=== PATIENT | male | born 1955 | race Caucasian/White ===

== ENCOUNTER 2023-12-04 09:58 | Outpatient (CLI) | payer MEDICARE, SELFPAY ==
--- NOTE | 2023-12-04 11:00 | NEURO_ITS ---
Impression: # Complains of numbness of hands. Not diabetic. # Bilateral Carpal Tunnel Syndrome, left more than right. # No ulnar neuropathy. # Normal needle/EMG exam. # Patient noted to have dystonic posturing of both hands throughout testing. Nerve Conduction Studies Anti Sensory Summary Table Stim Site NR Peak (ms) P-T Amp (?V) Site1 Site2 Delta-P (ms) Dist (cm) Stepan (m/s) Left Median Anti Sensory (2-3nd Digit) Wrist 6.3 5.5 Wrist 2-3nd Digit 6.3 14.0 22 Wrist 6.3 22.1 Wrist 2-3nd Digit 6.3 14.0 22 Right Median Anti Sensory (2-3nd Digit) Wrist 5.8 24.4 Wrist 2-3nd Digit 5.8 14.0 24 Wrist 6.1 37.0 Wrist 2-3nd Digit 5.8 14.0 24 Left Radial Anti Sensory (Base 1st Digit) Wrist 1.8 25.5 Wrist Base 1st Digit 1.8 0.0 Right Radial Anti Sensory (Base 1st Digit) Wrist 2.4 14.5 Wrist Base 1st Digit 2.4 0.0 Left Ulnar Anti Sensory (5th Digit) Wrist 2.5 28.9 Wrist 5th Digit 2.5 14.0 56 Right Ulnar Anti Sensory (5th Digit) Wrist 2.7 19.9 Wrist 5th Digit 2.7 14.0 52 Motor Summary Table Stim Site NR Onset (ms) O-P Amp (mV) Site1 Site2 Delta-0 (ms) Dist (cm) Stepan (m/s) Left Median Motor (Abd Poll Brev) Wrist 6.3 0.7 Elbow Wrist 3.9 29.0 74 Elbow 10.2 1.4 Right Median Motor (Abd Poll Brev) Wrist 3.8 1.6 Elbow Wrist 5.7 30.0 53 Elbow 9.5 0.9 Left Ulnar Motor (Abd Dig Minimi) Wrist 2.3 4.2 A Elbow Wrist 4.9 29.0 59 A Elbow 7.2 3.6 Right Ulnar Motor (Abd Dig Minimi) Wrist 2.7 6.1 A Elbow Wrist 5.3 30.0 57 A Elbow 8.0 4.8 F Wave Studies NR F-Lat (ms) L-R F-Lat (ms) Left Median (Mrkrs) (Abd Poll Brev) 27.60 0.41 Right Median (Mrkrs) (Abd Poll Brev) 28.01 0.41 Left Ulnar (Mrkrs) (Abd Dig Min) 28.41 0.34 Right Ulnar (Mrkrs) (Abd Dig Min) 28.75 0.34 EMG Side Muscle Nerve Root Ins Act Fibs Amp Dur Recrt Comment Right 1stDorInt Ulnar C8-T1 Nml Nml Nml Nml Nml Right Ext Indicis Radial (Post Int) C7-8 Nml Nml Nml Nml Nml Right Ext Digitorum Radial (Post Int) C7-8 Nml Nml Nml Nml Nml Right BrachioRad Radial C5-6 Nml Nml Nml Nml Nml Right PronatorTeres Median C6-7 Nml Nml Nml Nml Nml Right Abd Poll Brev Median C8-T1 Nml Nml Nml Nml Nml Right ABD Dig Min Ulnar C8-T1 Nml Nml Nml Nml Nml Left 1stDorInt Ulnar C8-T1 Nml Nml Nml Nml Nml Left Ext Indicis Radial (Post Int) C7-8 Nml Nml Nml Nml Nml Left Ext Digitorum Radial (Post Int) C7-8 Nml Nml Nml Nml Nml Left BrachioRad Radial C5-6 Nml Nml Nml Nml Nml Left PronatorTeres Median C6-7 Nml Nml Nml Nml Nml Left Abd Poll Brev Median C8-T1 Nml Nml Nml >12ms +2 Left ABD Dig Min Ulnar C8-T1 Nml Nml Nml Nml Nml MTDD
== END 2023-12-04 09:59 | disposition home or self-care (01) ==
PROVIDERS: PCP Internal Medicine; Visit Provider Internal Medicine
DX: R20.0 Anesthesia of skin (principal); G56.03 Carpal tunnel syndrome, bilateral upper limbs
CPT/HCPCS: 95886; 95911

== ENCOUNTER 2024-12-13 18:03 | Emergency (ER) | payer MEDICARE, SELFPAY ==
--- NOTE | ~2024-12-13 | CT_ITS ---
EXAMINATION: CTA chest abdomen pelvis DATE: 12/13/2024 19:22 INDICATION: chest and epigastric pain into back . TECHNIQUE: Computed tomography angiography of the chest, abdomen, and pelvis was performed with 100 m L Omnipaque-350 intravenous contrast, in the arterial phase. Automated exposure control and iterative reconstruction technique were employed. The dose-length product was 291.91 mGy-cm. COMPARISON: None FINDINGS: CHEST: Thoracic aorta: No significant dilation. No dissection. Moderate atherosclerotic calcification. Lung parenchyma and airways: Mild emphysematous change. Patent airways. Mild bibasilar scar/atelectas is. Thoracic inlet, axillae and chest wall: 1.5 cm right thyroid nodule. No axillary lymphadenopathy. Mediastinum: No mass or lymphadenopathy. Heart and pericardium: Normal heart size. No pericardial effusion. Coronary artery calcifications: Mild. Pleura: No effusion or mass. Thoracic bones: No acute osseous finding in the chest. Partially visualized, uncomplicated appearing anterior and posterior cervical fusion hardware. ABDOMEN/PELVIS: Liver: 5 mm hyperenhancing focus in the inferior right liver lobe. Biliary/Gallbladder: Gallbladder is normal. No bile duct dilation. Pancreas: No mass or duct dilation. Spleen: Normal. Adrenals:No mass. Kidneys: No suspicious mass, obstructing stone, or hydronephrosis. Bilateral cortical thinning and sc arring. Bilateral nonobstructing renal calculi. GI tract: No small or large bowel dilation. The appendix is not confidently visualized. Diverticulosi s without diverticulitis. Mesentery/Peritoneum: No ascites, mass, or free air. Mesenteric edema. Retroperitoneum: No mass Heavy atherosclerotic calcification of the abdominal aorta and its branches. Infrarenal abdominal aortic aneurysm, measuring up to 3.1 cm. No severe aortic branch vessel stenosi s. The SMA and CYRIL are patent. Pelvis: Partially distended urinary bladder with moderate wall thickening and inflammatory change. Pr ostatomegaly. Soft Tissues: Moderate left inguinal hernia containing unobstructed large bowel. Mild body wall edema Abdominopelvic bones: No acute osseous finding in the abdomen/pelvis. Lumbar scoliosis. Altered leve l grade 1 listheses. Multilevel severe degenerative disc disease. Severe central canal stenosis at L3 -4. Uncomplicated appearing spinous process fusion hardware at L4-5. IMPRESSION: Mild emphysema. 1.5 cm right thyroid nodule, recommend nonemergent, outpatient thyroid ultrasound for further evaluat ion. 5 mm hyperenhancing focus in the inferior right liver lobe, recommend nonemergent but timely MRI of t he liver without and with contrast for further characterization. Mild mesenteric edema, a nonspecific finding. 3.1 cm fusiform abdominal aortic aneurysm. Cystitis. Left inguinal hernia containing unobstructed large bowel. Mild body wall edema. Reviewed, dictated and finalized at location K. IMPRESSION: Mild emphysema. 1.5 cm right thyroid nodule, recommend nonemergent, outpatient thyroid ultrasou nd for further evaluation. 5 mm hyperenhancing focus in the inferior right liver lobe, recommend nonemerge nt but timely MRI of the liver without and with contrast for further characteri zation. Mild mesenteric edema, a nonspecific finding. 3.1 cm fusiform abdominal aortic aneurysm. Cystitis. Left inguinal hernia containing unobstructed large bowel. Mild body wall edema.
--- OUTSIDE RECORDS SUMMARY | 2024-12-13 18:06 | XMS_ITS | Clinical Summary ---
Author Organization [facility] Address [address] [place] [address] Care Team Providers Care Collection Coordinator Name Role Phone Cristian Bhardwaj MD Primary Care Provider [phone] Source Comments [facility],non-owned Affiliates and Associated Physician Practices is amultiple site organization consisting of ambulatory clinics and hospital sitesin [place], [place], [place] and [place]. This disclosure is being madepursuant to the Care Everywhere program and may not contain all information available regarding this patient. Last updated 18.[facility] Allergies Active Allergy Reactions Criticality Noted Date Comments Codeine 06/13/2010 Upset stomach Medications * Be aware that medications may not be up to date on this document. Alwaysverify current medications with the patient. citalopram (CELEXA) 40 MG tablet Take 40 mg by mouth daily. Active lorazepam (ATIVAN) 0.5 MG tablet Take 0.5 mg by mouth every 8 hours as needed. Active pravastatin (PRAVACHOL) 40 MG tablet Take 40 mg by mouth 2 times daily. Active Glucosamine-Anatoly droitin (GLUCOSAMINE CHONDRO COMPLEX) 500-400 MG tablet Take 1 Tab by mouth daily. Active oxycodone-acetam inophen (PERCOCET) 7.5-500 MG tablet Take 1 Tab by mouth every 4 hours as needed. Active hydrocodone-acet aminophen (NORCO) 5-325 MG tablet Take 1-2 Tabs by mouth every 4 hours as needed for Pain. 40 Tab 1 10/18/2011 Active piroxicam (FELDENE) 20 MG capsule Take one tab daily with dinner 30 Cap 5 11/24/2012 Active Active Problems Problem Noted Date Diagnosed Date Degeneration of lumbar or lumbosacral interverte bral disc 12/02/2012 Follow-up examination, following other surgery 0 09/19/2011 Displacement of lumbar inter vertebral disc without myelopathy 06/18/2011 Status post lumbar surgery 08/14/2010 Spinal stenosis, lumbar brianna on, with neurogenic claudication 06/26/2010 Social History Tobacco Use Types Packs/Day Years Used Date Smoking Tobacco: Every Day Cigarettes 1 40 Tobacco Cessation:Ready to Q uit: No; Counseling Given: Yes Alcohol Use Standard Drinks/Week Comments No 0 (1 standard drink = 0.6 oz pur e alcohol) Sex and Gender Information Value Date Recorded Sex Assigned at Not on file Legal Sex Male 9:24 AM [employer] Gender Identity Not on file Sexual Orientation Not on file Last Filed Vital Signs Vital Sign Reading Time Taken Comments Blood Pressure 130/70 11/24/2012 11:31 AM CDT Pulse 64 11/24/2012 11:31 AM CDT Temperature 36.7 C (98 F) 08/31/2011 8:00 AM [employer] Respiratory Rate 26 11/24/2012 11:31 AM CDT Oxygen Saturation 93% 08/31/2011 8:00 AM [employer] Inhaled Oxygen Concentration - - Weight 79.4 kg (175 lb) 11/24/2012 11:31 AM CDT Height 172.7 cm (5' 8 ) 11/24/2012 11:31 AM CDT Body Mass Index 26.61 11/24/2012 11:31 AM CDT Plan of Treatment Health Maintenance Due Date Last Done Comments COLOGUARD (AGES 45-75) - COL ON CA SCREENING 1954 COLON MONITORING 1954 COLONOSCOPY - COLON CA SCREENING 1954 CT COLONOGRAPHY - COLON CA SCREENING 1954 Colorectal Cancer Screening 1954 FIT - COLON CA SCREENING 1954 FLEX SIG - COLON CA SCREENING 1954 HEPATITIS C SCREENING 02/18/1972 DTAP/TDAP/TD VACCINES (1 - Tdap) 1973 PNEUMOCOCCAL VACCINE 50+ (1 of 2 - PCV) 1973 ZOSTER VACCINE (1 of 2) 02/23/2004 AAA SCREENING 2019 COVID-19 VACCINE ( - 2023-2 5 season) 2024 DEPRESSION SCREENING 08/12/2024 INFLUENZA VACCINE (Season Ended) 2025 Respiratory Syncytial Virus (RSV) Vaccine Pt: or over 60 yrs (1 - 1-dose 75+ series) 2029 HEPATITIS B VACCINE Aged Out No longe r eligible based on patient's age to complete this topic HIB VACCINE Aged Out No longer eligi ble based on patient's age to complete this topic HPV VACCINE Aged Out No longer eligi ble based on patient's age to complete this topic MENINGOCOCCAL (Group B) VACC INE SHARED DECISION-MAKING Aged Out No longer eligibl e based on patient's age to complete this topic MENINGOCOCCAL GROUPS A/C/Y/W VACCINE Aged Out No longer eligible b ased on patient's age to complete this topic Insurance [facility] [employer] Advance Directives * FULL RESUSCITATION (Latest Code Status on File) Date Activated Date Inactivated Comments 08/30/2011 3:25 PM 08/31/2011 8:09 PM * Full Code Date Activated Date Inactivated Comments 06/13/2010 5:31 PM 06/14/2010 10:37 PM Care Teams Collection Coordinator Relationship Specialty Start Date End Date Cristian Bhardwaj MD [address] [place] [phone] PCP - General Internal Medicine 05/22/10
--- OUTSIDE RECORDS SUMMARY | 2024-12-13 18:06 | XMS_ITS | CONTINUITY OF CARE DOCUMENT ---
Author Name sylindranevin Address Unknown Organization [facility] Address [address] [place] [address] [address] [place] [address] Phone [phone] Care Team Providers Care Acute Care Clinical Nurse Specialist Name Role Phone Bubba QUIROS, Carol Unavailable YANELIS LUTZ MD Unavailable INSURANCE PROVIDERS Payer name Policy type / Coverage type Michelle red republican ID [facility] [id number]
--- OUTSIDE RECORDS SUMMARY | 2024-12-13 18:06 | XMS_ITS | Data Portability ---
Author Organization [place] [facility] [employer], Main Office Address [address] [place] [address] Assessment No assessment recorded. Plan of Treatment Reminders Order Date Submit Date Provider Last Modified By Organization Details Last Modified Time Details Appointments None recorded. Lab lipid panel, serum 025 025 [email or web address] [facility], [address] [place], [address], 5 09:51:17 CMP, serum or plasma 025 025 [email or web address] [facility], [address] [place], [address], 5 09:51:18 TSH, serum or plasma 025 025 [email or web address] [facility], [address] [place], [address], 5 09:51:18 T4, free, serum 025 025 [facility], [address] [place], [address], 5 09:51:18 CBC w/ auto diff 025 025 [id number] [facility], [address] [place], [address], 5 09:51:18 PSA, serum or plasma 025 025 [email or web address] [facility], [address] [place], [address], 5 09:51:18 drug screen, urine 025 025 [facility], [address] [place], [address], 5 09:51:18 lipid panel, serum 024 024 [facility], [address] [place], [address], 4 18:05:40 CMP, serum or plasma 024 [facility], [address] [place], [address], 4 18:05:46 TSH, serum or plasma 024 [facility], [address] [place], [address], 4 18:36:55 T4, free, serum 024 [facility], [address] [place], [address], 4 18:20:51 CBC w/ auto diff 024 [facility], [address] [place], [address], 4 17:44:17 vitamin B12, serum 024 024 [facility], [address] [place], [address], 4 18:27:55 CBC w/ auto diff 023 023 [facility], [address] [place], [address], 3 14:13:19 lipid panel, serum 023 023 [facility], [address] [place], [address], 3 14:35:48 CMP, serum or plasma 023 023 [facility], [address] [place], [address], 3 14:35:54 TSH, serum or plasma 023 023 [facility], [address] [place], [address], 3 15:06:42 T4, free, serum 023 023 [facility], [address] [place], [address], 3 15:04:41 PSA, serum or plasma [id number] [place] [address], [address] [place], [address], 4 13:11:54 drug screen, urine 023 023 [facility] [employer] [facility], [address] , [place], [address], 3 15:06:17 lipid panel, serum [id number] [place] [address], [address] [place], [address], 3 16:28:05 CMP, serum or plasma [id number] [place] [address], [address] [place], [address], 3 16:28:05 CBC w/ auto diff [id number] [place] [address], [address] [place], [address], 3 16:28:05 PSA, serum or plasma 023 023 [id number] [facility], [address], [place], [address], 3 16:28:05 drug screen, urine 023 023 [email or web address] [facility], [facility] [address], [place], [address], 3 16:28:05 Referral None recorded. Procedures None recorded. Surgeries None recorded. Imaging None recorded. Medication Orders None recorded. Patient TargetsNo targets recorded. Patient Instructions Encounter Date Encounter Id Patient Instructions Last Modified By Organization Details Last Modified Time 02/11/2023 [id number] dementia rating scale-2* [email or web address] Not available 02/11/2023 11:32:54 alcohol misuse* [email or web address] Not available 02/11/2023 11:32:54 depression screening* [email or web address] Not available 02/11/2023 11:32:54 multi-dimensiona l health assessment questionnaire* [email or web address] Not available 02/11/2023 11:32:54 Personalized [facility] Plan and Screening Recommendations Advance Directives - Do you have one? No Advance Directives - Do we have your advance directive on file in your health record? Primary Prevention/Interven tion (prevents or decreases the chance of common diseases from occurring) Smoking Risk: Smoker Refer to attached smoking cessation handouts Refer to attached handouts and prescription will be sent to pharmacy Continue to consider stopping smoking and call if we can assist you Alcohol Misuse Screening: Negative Weight: Appropriate Physical activity: Need more exercise/physical activity Nutrition: Good Average Fall Risk (screened today): Low Vaccines Pneumococcal: Ordered Recommended today Influenza: Your next one in the fall of this year Chronic Disease Risks Stroke: Low Risk Intermediate Risk I have no recommendations Act sudha diagnosis, Continue current treatment plan Heart Attack: Low risk Intermediate Risk I have no recommendations Act sudha diagnosis, Continue current treatment plan Clogging of the Arteries: Low risk Intermediate Risk I have no recommendations Act sudha diagnosis, Continue current treatment plan Diabetes: Low Risk Intermediate Risk Active diagnosis, Continue current treatment plan Secondary Prevention/Interven tion (detects treatable diseases before they may cause symptoms, disability, or ) Prostate Cancer Screening: Colon Cancer Screening: Colonoscopy In: Ordered Recomme nded Date Screening Last Performed: Eye Disease Screening: Ordered Recommended today Dementia Risk: Low I have no recommendations Depression Screening: Negative Active diagnosis, Continue current treatment plan [email or web address] Not available 02/11/2023 11:13:01 Medicare wellnes s evaluation risk assessment stable. Was given a Pneumovax 23 shot to close out his pneumococcal immunization. Also needs a low-dose CT scan of the chest, colonoscopy as well as blood work. Will check a CBC, CMP, lipid urine drug screen and PSA. Follow-up in six months low-dose CT scan of the chest Follow-up colonoscopy [email or web address] Not available 02/11/2023 11:34:11 08/08/2023 [id number] Follow-up lumbar radiculopathy- depression- hyperlipidemia- chronic pain syndrome. All clinically stable. Will check blood work consisting of CBC, CMP, lipid, thyroid and, PSA and urine drug screen. Continue on current Rx follow-up in six months. FDA recommendations of a influenza, RSV, COVID, pneumococcal immunizations strongly advised. Portions of the record may have been created with voice recognition software. Occasional wrong-word or [id number] substitutions may have occurred due to the inherent limitations of voice recognition software. Read the chart carefully and recognize, using context, where substitutions have occurred. [email or web address] Not available 08/08/2023 10:54:23 10/10/2023 [id number] Bilateral hand numbness. Will obtain a MRI of the cervical spine as well as a nerve conduction study of both hands. Pending those results. Will check a vitamin B12 level. Portions of the record may have been created with voice recognition software. Occasional wrong-word or ecjlp-n-[id number] substitutions may have occurred due to the inherent limitations of voice recognition software. Read the chart carefully and recognize, using context, where substitutions have occurred. MRI of the cervical spine for bilateral arm numbness without contrast Nerve conduction study of both upper all extremities for bilateral hand numbness Keep Appt: [facility] [place] 02 06 2024 09:40 AM [place] [email or web address] Not available 10/10/2023 12:30:55 06/10/2024 [id number] Follow-up hyperlipidemia, spinal stenosis lumbar area, chronic pain syndrome, left and right inguinal hernia. Plan is obtain blood work consisting of CBC, CMP, lipid and thyroid. Set up with General surgery for evaluation the hernias. Check a urine drug screen as well. Continue on current Rx and follow-up in for months Additional Orders - Directives - Recommendations 1. General surgery consult for bilateral inguinal hernias Follow Up: 4 Months Approximate Date: 10/08/2024 Portions of the record may have been created with voice recognition software. Occasional wrong-word or [id number] substitutions may have occurred due to the inherent limitations of voice recognition software. Read the chart carefully and recognize, using context, where substitutions have occurred. [email or web address] Not available 06/10/2024 15:43:11 10/14/2024 [id number] Follow-up for hyperlipidemia, GERD, depression, chronic pain syndrome all clinically stable. Overall has been doing well otherwise. Will continue on current medications check blood work consisting of CBC, CMP, lipid, thyroid and PSA. Continue on current Rx follow-up in four months Additional Orders - Directives - Recommendations 1. Needs a follow-up colonoscopy Follow Up: 4 Months Approximate Date: 02/11/2025 Portions of record are template driven. When necessary additional context will be provided. Additionally some portions have been created with voice recognition software. Occasional wrong-word or [id number] substitutions may have occurred due to the inherent limitations of voice recognition software. Read the chart carefully and recognize, using context, where substitutions may have occurred. Created: Cristian Bhardwaj M.D. 10.14.2024 02:51 PM [email or web address] Not available 10/14/2024 15:51:51 Reason for Referral None Reported. Results Created Date Observation Date Name Description Value Unit Range Abnormal Flag Note LastModifiedBy Organization Detail LastModifiedTime 08/08/2008/08/2023 CBC/C OMPLE TE BLD COUNT W/DIF F white blood cells 10.2 x10'3 /uL 4.2-10 .8 Not Available [facility] (Lab) [address] [place], [address], 08/08/2023 14:13:19 08/08/20 23 08/08/2023 CBC/C OMPLE TE BLD COUNT W/DIF F red blood cells 3.84 x10'6 /uL 4.10-5 .80 low Not Available [facility] (Lab) [address] [place], [address], 08/08/2023 14:13:19 08/08/20 23 08/08/2023 CBC/C OMPLE TE BLD COUNT W/DIF F hemoglobin 12.4 g/dL 13.2-1 7.0 low Not Available [facility] (Lab) [address] [place], [address], 08/08/2023 14:13:19 08/08/20 23 08/08/2023 CBC/C OMPLE TE BLD COUNT W/DIF F hematocrit 39.3 % 39.3-5 0.0 Not Available [facility] (Lab) [address] [place], [address], 08/08/2023 14:13:19 08/08/20 23 08/08/2023 CBC/C OMPLE TE BLD COUNT W/DIF F mean red cell volume 102.3 fL 80.0-9 7.0 high Not Available [facility] (Lab) [address] [place], [address], 08/08/2023 14:13:19 08/08/20 23 08/08/2023 CBC/C OMPLE TE BLD COUNT W/DIF F mean red cell hemoglobin 32.3 pg 27.0-3 3.0 Not Available [facility] (Lab) [address] [place], [address], 08/08/2023 14:13:19 08/08/20 23 08/08/2023 CBC/C OMPLE TE BLD COUNT W/DIF F mean RBC HGB concentratio n 31.6 g/dL 31.0-3 6.0 Not Available [facility] (Lab) [address] [place], [address], 08/08/2023 14:13:19 08/08/20 23 08/08/2023 CBC/C OMPLE TE BLD COUNT W/DIF F red cell distribution width 13.8 % 11.8-1 5.5 Not Available [facility] (Lab) [address] [place], [address], 08/08/2023 14:13:19 08/08/20 23 08/08/2023 CBC/C OMPLE TE BLD COUNT W/DIF F platelets 235 x10'3 /uL 150-40 0 Not Available [facility] (Lab) [address] [place], [address], 08/08/2023 14:13:19 08/08/20 23 08/08/2023 CBC/C OMPLE TE BLD COUNT W/DIF F mean platelet volume 10.4 fL 9.0-12 .4 Not Available [facility] (Lab) [address] [place], [address], 08/08/2023 14:13:19 08/08/20 23 08/08/2023 CBC/C OMPLE TE BLD COUNT W/DIF F neutrophils 72.7 % 39.0-7 2.0 high Not Available [facility] (Lab) [address] [place], [address], 08/08/2023 14:13:19 08/08/20 23 08/08/2023 CBC/C OMPLE TE BLD COUNT W/DIF F lymphocytes 17.2 % 16.0-4 7.0 Not Available [facility] (Lab) [address] [place], [address], 08/08/2023 14:13:19 08/08/20 23 08/08/2023 CBC/C OMPLE TE BLD COUNT W/DIF F monocytes 7.1 % 5.0-12 .0 Not Available [facility] (Lab) [address] [place], [address], 08/08/2023 14:13:19 08/08/20 23 08/08/2023 CBC/C OMPLE TE BLD COUNT W/DIF F eosinophils 2.1 % 1.0-7. 0 Not Available [facility] (Lab) [address] [place], [address], 08/08/2023 14:13:19 08/08/20 23 08/08/2023 CBC/C OMPLE TE BLD COUNT W/DIF F basophils 0.6 % 0.0-2. 0 Not Available [facility] (Lab) [address] [place], [address], 08/08/2023 14:13:19 08/08/20 23 08/08/2023 CBC/C OMPLE TE BLD COUNT W/DIF F immature granulocytes 0.3 % 0.00-0 .50 Not Available [facility] (Lab) [address] [place], [address], 08/08/2023 14:13:19 08/08/20 23 08/08/2023 CBC/C OMPLE TE BLD COUNT W/DIF F neutrophils, absolute count 7.42 x10'3 /uL 1.5-8. 0 Not Available [facility] (Lab) [address] [place], [address], 08/08/2023 14:13:19 08/08/20 23 08/08/2023 CBC/C OMPLE TE BLD COUNT W/DIF F lymphocytes, absolute count 1.75 x10'3 /uL 1.07-3 .43 Not Available [facility] (Lab) [address] [place], [address], 08/08/2023 14:13:19 08/08/20 23 08/08/2023 CBC/C OMPLE TE BLD COUNT W/DIF F monocytes, absolute count 0.72 x10'3 /uL 0.29-0 .99 Not Available [facility] (Lab) [address] [place], [address], 08/08/2023 14:13:19 08/08/20 23 08/08/2023 CBC/C OMPLE TE BLD COUNT W/DIF F eosinophils, absolute count 0.21 x10'3 /uL 0.02-0 .53 Not Available [facility] (Lab) [address] [place], [address], 08/08/2023 14:13:19 08/08/20 23 08/08/2023 CBC/C OMPLE TE BLD COUNT W/DIF F basophils, absolute count 0.06 x10'3 /uL 0.01-0 .08 Not Available [facility] (Lab) [address] [place], [address], 08/08/2023 14:13:19 08/08/20 23 08/08/2023 CBC/C OMPLE TE BLD COUNT W/DIF F immature granulocytes ,absolute 0.03 x10'3 /uL 0.00-0 .05 Not Available [facility] (Lab) [address] [place], [address], 08/08/2023 14:13:19 08/08/20 23 08/08/2023 CBC/C OMPLE TE BLD COUNT W/DIF F nucleated red blood cells 0.0 % -0 Not Available [facility] (Lab) [address] [place], [address], 08/08/2023 14:13:19 08/08/20 23 08/08/2023 CBC/C OMPLE TE BLD COUNT W/DIF F NRBC# 0.00 x10'3 /uL Not Available [facility] (Lab) [address] [place], [address], 08/08/2023 14:13:19 08/08/20 23 08/08/2023 LIPID PANEL cholesterol 119 mg/dL 140-19 9 low NIH JC NSUS RECOM MENDA TION FOR ABHISHEK STERO L: ADULT CHILD LOW RISK: <200 <170 BORDE RLINE : <200- 239 ----- HIGH RISK: >240 >200 Not Available [facility] (Lab) [address] [place], [address], 08/08/2023 14:35:48 08/08/20 23 08/08/2023 LIPID PANEL triglyceride s 45 mg/dL 0-150 NIH JC NSUS REPOR T RECOM MENDA TION FOR TRIGL YCERI HERBER: ADULT CHILD LOW RISK: <150 ----- BODER LINE: 150-1 99 ----- HIGH RISK: >200 ----- Not Available [facility] (Lab) [address] [place], [address], 08/08/2023 14:35:48 08/08/20 23 08/08/2023 LIPID PANEL HDL cholesterol 47 mg/dL 40- Not Available [facility] (Lab) [address] [place], [address], 08/08/2023 14:35:48 08/08/20 23 08/08/2023 LIPID PANEL LDL cholesterol, calculated 63 mg/dL 0-130 NIH JC NSUS REPOR T RECOM MENDA TIONS FOR LDL: ADULT CHILD LOW RISK <130 <110 (OPTI MAL LDL) <100 ----- BORDE RLINE : 130-1 59 ----- HIGH RISK: >160 >130 A TRIGL YCERI DE RESUL T >400 INVAL IDATE S THE CALCU LATIO N FOR LDL FRACT IONAT ION - THE LDL RESUL T WILL NOT BE REPOR MICH. Not Available [facility] (Lab) [address] [place], [address], 08/08/2023 14:35:48 08/08/20 23 08/08/2023 COMPR EHENS SUDHA METAB OLIC PANEL sodium 139 mmol/ L 137-14 5 Not Available [facility] (Lab) [address] [place], [address], 08/08/2023 14:35:54 08/08/20 23 08/08/2023 COMPR EHENS SUDHA METAB OLIC PANEL potassium 4.3 mmol/ L 3.5-5. 1 Not Available [facility] (Lab) [address] [place], [address], 08/08/2023 14:35:54 08/08/20 23 08/08/2023 COMPR EHENS SUDHA METAB OLIC PANEL chloride 103 mmol/ L 98-107 Not Available [facility] (Lab) [address] [place], [address], 08/08/2023 14:35:54 08/08/20 23 08/08/2023 COMPR EHENS SUDHA METAB OLIC PANEL carbon dioxide 29 mmol/ L 22-30 Not Available [facility] (Lab) [address] [place], [address], 08/08/2023 14:35:54 08/08/20 23 08/08/2023 COMPR EHENS SUDHA METAB OLIC PANEL anion gap 11.3 mmol/ L 14-22 low Not Available [facility] (Lab) [address] [place], [address], 08/08/2023 14:35:54 08/08/20 23 08/08/2023 COMPR EHENS SUDHA METAB OLIC PANEL glucose 86 mg/dL 70-99 Not Available [facility] (Lab) [address] [place], [address], 08/08/2023 14:35:54 08/08/20 23 08/08/2023 COMPR EHENS SUDHA METAB OLIC PANEL BUN 26 mg/dL 8-19 high Not Available [facility] (Lab) [address] [place], [address], 08/08/2023 14:35:54 08/08/20 23 08/08/2023 COMPR EHENS SUDHA METAB OLIC PANEL creatinine 1.30 mg/dL 0.66-1 .25 high Not Available [facility] (Lab) [address] [place], [address], 08/08/2023 14:35:54 08/08/20 23 08/08/2023 COMPR EHENS SUDHA METAB OLIC PANEL GFR 55 Refer ence Range : Rogers ge GFR Healt hy Adult : >60 mL/mi n/1.7 3 m2 Chron ic Kidne y Disea se: 15-60 mL/mi n/1.7 3 m2 Kidne y Failu re: <15/m L/min /1.73 m2 www.n iddk. nih.g ov The MDRD study equat ion has not been valid ated in child misael <18 years of age; pregn ant women ; the elder ly >85 years of age; or in some racia l or ethni c subgr oups, such as Hispa nics. Outsi de the valid ated tong eters , estim ated GFR is less accur ate, requi ring clini nydia judgm ent on a case- by-ca se basis . Clini nydia inter preta tion for other races and ages must be made by the clini tonya. The MDRD study equat ion has not been valid ated for the evalu ation of serum creat inine relat ed to nutri aleksandar l statu s or medic ation usage . For perso ns <18 years of age, a pedia tric GFR calcu lator is avail able on the [facility] websi te: https ://chika ruano.renita wade.o rg/pr ofess ional s/kdo qi/gf r_cal culat or Not Available [facility] (Lab) [address] [place], [address], 08/08/2023 14:35:54 08/08/2008/08/2023 COMPR EHENS SUDHA METAB OLIC PANEL alkaline phosphatase 44 U/L 38-126 Not Available [facility] (Lab) [address] [place], [address], 08/08/2023 14:35:54 08/08/20 23 08/08/2023 COMPR EHENS SUDHA METAB OLIC PANEL alanine aminotransfe rase 15 U/L 0-50 Not Available [facility] (Lab) [address] [place], [address], 08/08/2023 14:35:54 08/08/20 23 08/08/2023 COMPR EHENS SUDHA METAB OLIC PANEL aspartate aminotransfe rase 26 U/L 15-46 Not Available [facility] (Lab) [address] [place], [address], 08/08/2023 14:35:54 08/08/20 23 08/08/2023 COMPR EHENS SUDHA METAB OLIC PANEL bilirubin, total 0.50 mg/dL 0.20-1 .30 Not Available [facility] (Lab) [address] [place], [address], 08/08/2023 14:35:54 08/08/20 23 08/08/2023 COMPR EHENS SUDHA METAB OLIC PANEL calcium 9.3 mg/dL 8.4-10 .2 Not Available [facility] (Lab) [address] [place], [address], 08/08/2023 14:35:54 08/08/20 23 08/08/2023 COMPR EHENS SUDHA METAB OLIC PANEL total protein 7.1 g/dL 6.3-8. 2 Not Available [facility] (Lab) [address] [place], [address], 08/08/2023 14:35:54 08/08/20 23 08/08/2023 COMPR EHENS SUDHA METAB OLIC PANEL albumin 4.2 g/dL 3.0-4. 4 Not Available [facility] (Lab) [address] [place], [address], 08/08/2023 14:35:54 08/08/20 23 08/08/2023 COMPR EHENS SUDHA METAB OLIC PANEL globulin 2.9 g/dL 2.6-4. 2 Not Available [facility] (Lab) [address] [place], [address], 08/08/2023 14:35:54 08/08/20 23 08/08/2023 COMPR EHENS SUDHA METAB OLIC PANEL A/G ratio 1.4 ratio 1.0-2. 0 Not Available [facility] (Lab) [address] [place], [address], 08/08/2023 14:35:54 08/08/20 23 08/08/2023 T4 FREE free T4 1.06 NG/dL 0.78-2 .19 Not Available [facility] (Lab) [address] [place], [address], 08/08/2023 15:04:41 08/08/20 23 08/08/2023 PSA, TOTAL PSA, total <0.064 NG/mL 0.00-4 .00 Not Available [facility] (Lab) [address] [place], [address], 08/08/2023 15:05:42 08/08/20 23 08/08/2023 URINE DRUG SCREE N amphetamines NEGATI VE Amphe tamin e cut off 500 ng/mL Not Available [facility] (Lab) [address] [place], [address], 08/08/2023 15:06:17 08/08/20 23 08/08/2023 URINE DRUG SCREE N barbiturates NEGATI VE Khadijah turat e cut off 200 ng/mL Not Available [facility] (Lab) [address] [place], [address], 08/08/2023 15:06:17 08/08/20 23 08/08/2023 URINE DRUG SCREE N benzodiazepi osei NEGATI VE Benzo diaze pine cut off 200 ng/mL Not Available [facility] (Lab) [address] [place], [address], 08/08/2023 15:06:17 08/08/20 23 08/08/2023 URINE DRUG SCREE N cocaine NEGATI VE Cocai ne metab olite cut off 150 ng/mL Not Available [facility] (Lab) [address] [place], [address], 08/08/2023 15:06:17 08/08/20 23 08/08/2023 URINE DRUG SCREE N MDMA NEGATI VE MDMA cut off 500 ng/mL Not Available [facility] (Lab) [address] [place], [address], 08/08/2023 15:06:17 08/08/20 23 08/08/2023 URINE DRUG SCREE N methadone NEGATI VE Metha done cutof f 300 ng/mL . Not Available [facility] (Lab) [address] [place], [address], 08/08/2023 15:06:17 08/08/20 23 08/08/2023 URINE DRUG SCREE N opiates NEGATI VE Opiat e cut off 300 ng/mL Not Available [facility] (Lab) [address] [place], [address], 08/08/2023 15:06:17 08/08/20 23 08/08/2023 URINE DRUG SCREE N oxycodone POSITI VE abnormal Oxyco done cut off 100 ng/mL Not Available [facility] (Lab) [address] [place], [address], 08/08/2023 15:06:17 08/08/20 23 08/08/2023 URINE DRUG SCREE N phencyclidin e NEGATI VE PCP cut off 25 ng/mL Not Available [facility] (Lab) [address] [place], [address], 08/08/2023 15:06:17 08/08/20 23 08/08/2023 URINE DRUG SCREE N marijuana POSITI VE abnormal Marij uana cut off 50 ng/mL ANY POSIT SUDHA RESUL TS REPOR MICH ARE UNCON FIRME D, AND SUCH, SHOUL D BE USED FOR MEDIC AL TREAT MENT PURPO SES ONLY. Not Available [facility] (Lab) [address] [place], [address], 08/08/2023 15:06:17 08/08/20 23 08/08/2023 TSH thyroid-stim ulating hormone 0.735 uIU/m L 0.465- 4.680 Not Available [facility] (Lab) [address] [place], [address], 08/08/2023 15:06:42 10/10/19 24 10/10/2023 VITAM IN B12 (ISREAL INDY ) vb12 618 pg/mL 239-93 1 Not Available [facility] (Lab) [address] [place], [address], 10/10/2023 18:27:55 06/10/20 24 06/10/2024 CBC/C OMPLE TE BLD COUNT W/DIF F white blood cells 6.3 x10'3 /uL 4.2-10 .8 Not Available [facility] (Lab) [address] [place], [address], 06/10/2024 17:44:17 06/10/20 24 06/10/2024 CBC/C OMPLE TE BLD COUNT W/DIF F red blood cells 4.10 x10'6 /uL 4.10-5 .80 Not Available [facility] (Lab) [address] [place], [address], 06/10/2024 17:44:17 06/10/20 24 06/10/2024 CBC/C OMPLE TE BLD COUNT W/DIF F hemoglobin 12.2 g/dL 13.2-1 7.0 low Not Available [facility] (Lab) [address] [place], [address], 06/10/2024 17:44:17 06/10/20 24 06/10/2024 CBC/C OMPLE TE BLD COUNT W/DIF F hematocrit 39.3 % 39.3-5 0.0 Not Available [facility] (Lab) [address] [place], [address], 06/10/2024 17:44:17 06/10/2006/10/2024 CBC/C OMPLE TE BLD COUNT W/DIF F mean red cell volume 95.9 fL 80.0-9 7.0 Not Available [facility] (Lab) [address] [place], [address], 06/10/2024 17:44:17 06/10/2006/10/2024 CBC/C OMPLE TE BLD COUNT W/DIF F mean red cell hemoglobin 29.8 pg 27.0-3 3.0 Not Available [facility] (Lab) [address] [place], [address], 06/10/2024 17:44:17 06/10/2006/10/2024 CBC/C OMPLE TE BLD COUNT W/DIF F mean RBC HGB concentratio n 31.0 g/dL 31.0-3 6.0 Not Available [facility] (Lab) [address] [place], [address], 06/10/2024 17:44:17 06/10/2006/10/2024 CBC/C OMPLE TE BLD COUNT W/DIF F red cell distribution width 19.3 % 11.8-1 5.5 high Not Available [facility] (Lab) [address] [place], [address], 06/10/2024 17:44:17 06/10/20 24 06/10/2024 CBC/C OMPLE TE BLD COUNT W/DIF F platelets 268 x10'3 /uL 150-40 0 Not Available [facility] (Lab) [address] [place], [address], 06/10/2024 17:44:17 06/10/2006/10/2024 CBC/C OMPLE TE BLD COUNT W/DIF F mean platelet volume 9.6 fL 9.0-12 .4 Not Available [facility] (Lab) [address] [place], [address], 06/10/2024 17:44:17 06/10/2006/10/2024 CBC/C OMPLE TE BLD COUNT W/DIF F neutrophils 57.1 % 39.0-7 2.0 Not Available [facility] (Lab) [address] [place], [address], 06/10/2024 17:44:17 06/10/2006/10/2024 CBC/C OMPLE TE BLD COUNT W/DIF F lymphocytes 30.3 % 16.0-4 7.0 Not Available [facility] (Lab) [address] [place], [address], 06/10/2024 17:44:17 06/10/2006/10/2024 CBC/C OMPLE TE BLD COUNT W/DIF F monocytes 8.9 % 5.0-12 .0 Not Available [facility] (Lab) [address] [place], [address], 06/10/2024 17:44:17 06/10/2006/10/2024 CBC/C OMPLE TE BLD COUNT W/DIF F eosinophils 2.4 % 1.0-7. 0 Not Available [facility] (Lab) [address] [place], [address], 06/10/2024 17:44:17 06/10/2006/10/2024 CBC/C OMPLE TE BLD COUNT W/DIF F basophils 1.0 % 0.0-2. 0 Not Available [facility] (Lab) [address] [place], [address], 06/10/2024 17:44:17 06/10/2006/10/2024 CBC/C OMPLE TE BLD COUNT W/DIF F immature granulocytes 0.3 % 0.00-0 .50 Not Available [facility] (Lab) [address] [place], [address], 06/10/2024 17:44:17 06/10/2006/10/2024 CBC/C OMPLE TE BLD COUNT W/DIF F neutrophils, absolute count 3.61 x10'3 /uL 1.5-8. 0 Not Available [facility] (Lab) [address] [place], [address], 06/10/2024 17:44:17 06/10/2006/10/2024 CBC/C OMPLE TE BLD COUNT W/DIF F lymphocytes, absolute count 1.91 x10'3 /uL 1.07-3 .43 Not Available [facility] (Lab) [address] [place], [address], 06/10/2024 17:44:17 06/10/2006/10/2024 CBC/C OMPLE TE BLD COUNT W/DIF F monocytes, absolute count 0.56 x10'3 /uL 0.29-0 .99 Not Available [facility] (Lab) [address] [place], [address], 06/10/2024 17:44:17 06/10/2006/10/2024 CBC/C OMPLE TE BLD COUNT W/DIF F eosinophils, absolute count 0.15 x10'3 /uL 0.02-0 .53 Not Available [facility] (Lab) [address] [place], [address], 06/10/2024 17:44:17 06/10/20 24 06/10/2024 CBC/C OMPLE TE BLD COUNT W/DIF F basophils, absolute count 0.06 x10'3 /uL 0.01-0 .08 Not Available [facility] (Lab) [address] [place], [address], 06/10/2024 17:44:17 06/10/20 24 06/10/2024 CBC/C OMPLE TE BLD COUNT W/DIF F immature granulocytes ,absolute 0.02 x10'3 /uL 0.00-0 .05 Not Available [facility] (Lab) [address] [place], [address], 06/10/2024 17:44:17 06/10/20 24 06/10/2024 CBC/C OMPLE TE BLD COUNT W/DIF F nucleated red blood cells 0.0 % -0 Not Available [facility] (Lab) [address] [place], [address], 06/10/2024 17:44:17 06/10/20 24 06/10/2024 CBC/C OMPLE TE BLD COUNT W/DIF F NRBC# 0.00 x10'3 /uL Not Available [facility] (Lab) [address] [place], [address], 06/10/2024 17:44:17 06/10/2006/10/2024 LIPID PANEL cholesterol 144 mg/dL 140-19 9 NIH JC NSUS RECOM MENDA TION FOR ABHISHEK STERO L: ADULT CHILD LOW RISK: <200 <170 BORDE RLINE : <200- 239 ----- HIGH RISK: >240 >200 Not Available [facility] (Lab) [address] [place], [address], 06/10/2024 18:05:40 06/10/2006/10/2024 LIPID PANEL triglyceride s 70 mg/dL 0-150 NIH JC NSUS REPOR T RECOM MENDA TION FOR TRIGL YCERI HERBER: ADULT CHILD LOW RISK: <150 ----- BODER LINE: 150-1 99 ----- HIGH RISK: >200 ----- Not Available [facility] (Lab) [address] [place], [address], 06/10/2024 18:05:40 06/10/2006/10/2024 LIPID PANEL HDL cholesterol 60 mg/dL 40- Not Available [facility] (Lab) [address] [place], [address], 06/10/2024 18:05:40 06/10/20 24 06/10/2024 LIPID PANEL LDL cholesterol, calculated 70 mg/dL 0-130 NIH JC NSUS REPOR T RECOM MENDA TIONS FOR LDL: ADULT CHILD LOW RISK <130 <110 (OPTI MAL LDL) <100 ----- BORDE RLINE : 130-1 59 ----- HIGH RISK: >160 >130 A TRIGL YCERI DE RESUL T >400 INVAL IDATE S THE CALCU LATIO N FOR LDL FRACT IONAT ION - THE LDL RESUL T WILL NOT BE REPOR MICH. Not Available [facility] (Lab) [address] [place], [address], 06/10/2024 18:05:40 06/10/20 24 06/10/2024 COMPR EHENS SUDHA METAB OLIC PANEL sodium 138 mmol/ L 137-14 5 Not Available [facility] (Lab) [address] [place], [address], 06/10/2024 18:05:46 06/10/2006/10/2024 COMPR EHENS SUDHA METAB OLIC PANEL potassium 4.4 mmol/ L 3.5-5. 1 Not Available [facility] (Lab) [address] [place], [address], 06/10/2024 18:05:46 06/10/20 24 06/10/2024 COMPR EHENS SUDHA METAB OLIC PANEL chloride 107 mmol/ L 98-107 Not Available [facility] (Lab) [address] [place], [address], 06/10/2024 18:05:46 06/10/20 24 06/10/2024 COMPR EHENS SUDHA METAB OLIC PANEL carbon dioxide 23 mmol/ L 22-30 Not Available [facility] (Lab) [address] [place], [address], 06/10/2024 18:05:46 06/10/20 24 06/10/2024 COMPR EHENS SUDHA METAB OLIC PANEL anion gap 12.4 mmol/ L 14-22 low Not Available [facility] (Lab) [address] [place], [address], 06/10/2024 18:05:46 06/10/20 24 06/10/2024 COMPR EHENS SUDHA METAB OLIC PANEL glucose 79 mg/dL 70-99 Not Available [facility] (Lab) [address] [place], [address], 06/10/2024 18:05:46 06/10/20 24 06/10/2024 COMPR EHENS SUDHA METAB OLIC PANEL BUN 18 mg/dL 8-19 Not Available [facility] (Lab) [address] [place], [address], 06/10/2024 18:05:46 06/10/20 24 06/10/2024 COMPR EHENS SUDHA METAB OLIC PANEL creatinine 1.04 mg/dL 0.66-1 .25 Not Available [facility] (Lab) [address] [place], [address], 06/10/2024 18:05:46 06/10/20 24 06/10/2024 COMPR EHENS SUDHA METAB OLIC PANEL GFR >60 Refer ence Range : Rogers ge GFR Healt hy Adult : >60 mL/mi n/1.7 3 m2 Chron ic Kidne y Disea se: 15-60 mL/mi n/1.7 3 m2 Kidne y Failu re: <15/m L/min /1.73 m2 www.n iddk. nih.g ov The MDRD study equat ion has not been valid ated in child misael <18 years of age; pregn ant women ; the elder ly >85 years of age; or in some racia l or ethni c subgr oups, such as Hispa nics. Outsi de the valid ated tong eters , estim ated GFR is less accur ate, requi ring clini nydia judgm ent on a case- by-ca se basis . Clini nydia inter preta tion for other races and ages must be made by the clini tonya. The MDRD study equat ion has not been valid ated for the evalu ation of serum creat inine relat ed to nutri aleksandar l statu s or medic ation usage . For perso ns <18 years of age, a pedia tric GFR calcu lator is avail able on the [facility] websi te: https ://chika w.renita wade.o claire/pr ofess ional s/kdo qi/gf r_cal culat or Not Available [facility] (Lab) [address] [place], [address], 06/10/2024 18:05:46 06/10/20 24 06/10/2024 COMPR EHENS SUDHA METAB OLIC PANEL alkaline phosphatase 47 U/L 38-126 Not Available [facility] (Lab) [address] [place], [address], 06/10/2024 18:05:46 06/10/20 24 06/10/2024 COMPR EHENS SUDHA METAB OLIC PANEL alanine aminotransfe rase 19 U/L 0-50 Not Available [facility] (Lab) [address] [place], [address], 06/10/2024 18:05:46 06/10/20 24 06/10/2024 COMPR EHENS SUDHA METAB OLIC PANEL aspartate aminotransfe rase 28 U/L 15-46 Not Available [facility] (Lab) [address] [place], [address], 06/10/2024 18:05:46 06/10/20 24 06/10/2024 COMPR EHENS SUDHA METAB OLIC PANEL bilirubin, total 0.40 mg/dL 0.20-1 .30 Not Available [facility] (Lab) [address] [place], [address], 06/10/2024 18:05:46 06/10/20 24 06/10/2024 COMPR EHENS SUDHA METAB OLIC PANEL calcium 10.0 mg/dL 8.4-10 .2 Not Available [facility] (Lab) [address] [place], [address], 06/10/2024 18:05:46 06/10/20 24 06/10/2024 COMPR EHENS SUDHA METAB OLIC PANEL total protein 6.9 g/dL 6.3-8. 2 Not Available [facility] (Lab) [address] [place], [address], 06/10/2024 18:05:46 06/10/20 24 06/10/2024 COMPR EHENS SUDHA METAB OLIC PANEL albumin 4.3 g/dL 3.0-4. 4 Not Available [facility] (Lab) [address] [place], [address], 06/10/2024 18:05:46 06/10/20 24 06/10/2024 COMPR EHENS SUDHA METAB OLIC PANEL globulin 2.6 g/dL 2.6-4. 2 Not Available [facility] (Lab) [address] [place], [address], 06/10/2024 18:05:46 06/10/20 24 06/10/2024 COMPR EHENS SUDHA METAB OLIC PANEL A/G ratio 1.7 ratio 1.0-2. 0 Not Available [facility] (Lab) [address] [place], [address], 06/10/2024 18:05:46 06/10/20 24 06/10/2024 T4 FREE free T4 0.70 NG/dL 0.78-2 .19 low Not Available [facility] (Lab) [address] [place], [address], 06/10/2024 18:20:51 06/10/20 24 06/10/2024 TSH thyroid-stim ulating hormone 0.381 uIU/m L 0.465- 4.680 low Not Available [facility] (Lab) [address] [place], [address], 06/10/2024 18:36:55 08/19/19 24 08/19/2023 MRI, lumba r spine , w/o contr ast [facility] [address] [place] [address] [phone] Patien t Name: ASYA JAIN IN Access ion #: [id number] Sex: M : 1954 7 Dictat ed By: John Miller Attend ing Physic jackie: IRA BHARDWAJ CE Orderi Physic jackie: IRA BHARDWAJ CE Exam Date: 2023 13:03 PM Exam Name: MRI L SPINE WO Admitt ing Diagno sis(es ): MRI L SPINE WO INDICA TION: : 68 years old Male severe back pain radiat es right leg to knee,s harp pains EXAM DATE: 08/19/19 24 1:03 PM CONFIGURATION TECHNICIAN COMPAR APURVA: None PROCED URE: Using a 1.5 Julita scanne r, multis equenc e multip lanar imagin g of the lumbar spine was obtain ed. FINDIN GS: There are five lumbar verteb ral segmen ts. There is rightw dot curvat ure of the lumbar spine. 5 mm right latera l listhe sis of L2-3 and 12 mm of L3-4. There is 4 mm retrol isthes is of L2-3, 4 mm gayathri listhe sis of L3-4, and 5 mm gayathri listhe sis of L4-5. The lumbar spine shows preser vation of verteb ral body height s. There is partia l fusion of L4-5. The marrow signal is homoge neous. The interv ertebr al discs appear decrea sed in height and signal . The distal spinal cord is normal in signal and morpho logy and the conus medull екатерина termin ates at L1. The parasp inal soft tissue s are normal . On axial images : At L1-2, there is a manager revenue ior disc bulge, thecal sac measur es 10 mm in AP dimens ion, modera te bilate ral neural forami na narrow ing, and facet joints appear hypert rophie d. At L2-3, there is a manager revenue ior disc bulge, thecal sac measur es 8 mm in AP dimens ion, severe bilate ral neural forami na narrow ing, and facet joints appear hypert rophie d. At L3-4, there is a manager revenue ior disc bulge, thecal sac measur es 8 mm in AP Page [address] [facility] [address] [address] Patien t Name: ASYA JAIN IN Access ion #: [id number] Sex: M : 1954 7 Dictat ed By: John Miller Attend [facility] Physic jackie: [facility] Physic jackie: IRA BHARDWAJ Exam Date: 2023 13:03 PM Exam Name: MRI L SPINE WO Admitt ing Diagno sis(es ): dimens ion, severe bilate ral neural forami na narrow ing, and facet joints appear hypert rophie d and severe ly degene rative . At L4-5, there is a manager revenue ior disc bulge, thecal sac measur es 11 mm in AP dimens ion, modera te bilate ral neural forami na narrow ing, and facet joints appear hypert rophie d. Surgic al hardwa re is noted at the spinou s proces s. At L5-S1, there is a manager revenue ior disc bulge, thecal sac measur es 11 mm in AP dimens ion, modera te bilate ral neural forami na narrow ing, and facet joints appear hypert rophie d. Surgic al hardwa re is noted at the spinou s proces s. IMPRES RONALD: Rightw dot curvat ure of the lumbar spine. 5 mm right latera l listhe sis of L2-3 and 12 mm of L3-4. 4 mm retrol isthes is of L2-3, 4 mm gayathri listhe sis of L3-4, and 5 mm gayathri listhe sis of L4-5. Multil evel degene rative change s of the lumbar spine with centra l canal narrow ing and tortuo sity of the cauda equina nerve roots at L2-3, L3-4. Multil evel severe neural forami na narrow ing as detail ed above. Electr onical ly Signed by: John Miller at 2023 18:10: 47 PM Page 2 [email or web address] [facility] (Imaging) [address] [place], [address], 08/19/2023 20:46:37 10/24/19 24 10/24/2023 MRI, cervi nydia spine , w/o contr ast [facility] [address] [place] [address] Patien t Name: ASYA JAIN IN Access ion #: [id number] Sex: M : 1954 3 Dictat ed By: Demar knowles Attend ing Physic jackie: IRA BHARDWAJ CE Orderi Physic jackie: IRA BHARDWAJ CE Exam Date: 2023 10:11 AM Exam Name: MRI C SPINE WO Admitt ing Diagno sis(es ): CLINIC AL INFORM ATION: Bilate ral hand numbne ss. Histor y of neck surger y. TECHNI QUE: Multis equenc e multip lanar MRI images of the cervic al spine were obtain ed withou t contra st. COMPAR APURVA: No prior studie s. FINDIN GS: Bones: Revers al of the normal cervic al lordos is. Mild gayathri listhe sis of C2 on C3 and modera te gayathri listhe sis of C3 on C4. Mild retrol isthes is of C4 on C5. Postsu rgical change s of anteri or cervic al discec kin and fusion at C5-C7. Solid osseou s fusion at C5-C6. No signif icant osseou s fusion at C6-C7. Verteb ral body height s are mainta ined. Hub Lead ior elemen ts are intact . No acute fractu re. No focal suspic ious marrow signal abnorm ality. Spinal cord: There is indent ation of the spinal cord at the C2-C3, C3-C4, and C4-C5 levels due to spinal canal stenos es at these levels descri bed above. No signal abnorm ality identi fied in the spinal cord to sugges t myelop athy. Parasp inal soft tissue s: Parasp inal and prever tebral soft tissue s are unrema rkable . Other: No other signif icant findin gs. Cervic al disc levels : C2-C3: Disc desicc ation. Diffus e disc bulge and infold ing of the ligame ntum flavum contri buting to severe spinal canal stenos is with indent ation of the ventra l and dorsal aspect s of the spinal cord. No signal abnorm ality identi fied in the spinal cord to sugges t myelop athy. There is efface ment of the latera l recess es. Facet and uncina te hypert rophy with modera te bilate ral neural forami nal stenos es. C3-C4: Disc desicc ation with modera te to severe disc space narrow ing. Uncove ring of the disc due to the gayathri listhe sis. Diffus e disc bulge and infold ing of the ligame ntum flavum contri buting to severe spinal canal stenos is with indent ation of the ventra l aspect of the spinal cord. No signal Page 1 [facility] [address] [address] Patien t Name: ASYA JAIN IN Access ion #: [id number] Sex: M : 1954 3 Dictat ed By: Demar knowles Attend ing Physic jackie: BOLIVAR BROWN Physic jackie: IRA BHARDWAJ Exam Date: 2023 10:11 AM Exam Name: MRI C SPINE WO Admitt ing Diagno sis(es ): abnorm ality in the spinal cord to sugges t myelop athy. Efface ment of the latera l recess es. Facet and uncina te hypert rophy with severe left and modera te to severe right neural forami nal stenos es. C4-C5: Disc desicc ation with diffus e disc bulge causin g modera te spinal canal stenos is, abutti ng and mildly indent ing the ventra l aspect of the spinal cord and partia lly effaci ng the latera l recess es. Facet and uncina te hypert rophy with modera te to severe bilate ral neural forami nal stenos es. C5-C6: Postsu rgical change s of prior discec kin and fusion . 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 Facet and uncina te hypert rophy with modera te right and modera te to severe left neural forami nal stenos es. C6-C7: Postsu rgical change s of prior discec kin and fusion . Mild to modera te congen ital spinal canal stenos is. Facet and uncina te hypert rophy with modera te right and severe left neural forami nal stenos es. C7-T1: Disc desicc ation. Diffus e disc bulge superi mposed on congen ital spinal canal narrow ing with mild to modera te spinal canal stenos is and partia l efface ment of the latera l recess es. Facet and uncina te hypert rophy with modera te bilate ral neural forami nal stenos es. IMPRES RONALD: 1. Revers al of the normal cervic al lordos is with spondy lolist hesis as at C2-C3, C3-C4, and C4-C5 as detail ed above. 2. Degene rative disc diseas e and facet/ uncina te diseas e with associ ated spinal canal, subart icular , and neural forami nal stenos es as detail ed above. Severe spinal canal stenos es are noted at C2-C3 and C3-C4 due to a combin ation of spondy lolist hesis as, disc bulges , and infold ing of the ligame ntum flavum . Modera te spinal canal stenos is at C4-C5. 3. Postsu rgical change s as descri bed above. 4. Additi onal findin gs as detail ed above. Electr onical ly Signed by: Demar knowles at 2023 13:58: 21 PM Page [address] (Imaging) [address], [place], [address], 10/24/2023 15:02:12 12/04/19 24 12/04/2023 elect romyo gram + nerve condu ction study No observ ation record ed. [address], [place], [address], 12/04/2023 13:55:32 Result Notes None recorded. Problems Name Problem SNOMED Code Status Onset Date Resolution Date Notes Provider Name and Address Organization Details Recorded Time Renewal of prescription Active 2021 Not Available [facility] 3 14:11:34 Acute sinusitis 59033411 Active 2021 Not Available [facility] 3 14:11:34 Spinal stenosis of lumbar region 37080900 Active Not Available [facility] 3 14:11:34 Gastroesophag eal reflux disease 155411699 Active Not Available [facility] 3 14:11:34 Acute gastritis 66051390 Active Not Available [facility] 3 14:11:34 Pure hypercholeste rolemia 705524263 Active Not Available [facility] 3 14:11:34 Depressive disorder 55374345 Active Not Available [facility] 3 14:11:34 Chronic pain syndrome 773895906 Active 2019 Not Available [facility] 3 14:11:34 Fatigue 62943232 Active Not Available [facility] 3 14:11:34 Disorder of prostate 95594218 Active 2022 Cristian Bhardwaj MD [address], [place], [address] , [facility] 3 11:31:09 Prolapsed lumbar intervertebra l disc 501705507 Active 2022 Viola alexander, [place] - [facility] 3 11:21:53 Spinal stenosis 26490341 Active 2023 Nkechi Ovalles CMA null, [place] - [facility] 4 12:06:49 Numbness of hand 958923225 Active 2023 Cristian Bhardwaj MD [address], [address], [place], [address] , [facility] 4 12:27:19 Spinal stenosis in cervical region 94221067 Active 2023 Nkechi Ovalles CMA null, [place] - [facility] 4 11:47:18 Left inguinal hernia 801978184 Active 2023 Cristian Bhardwaj MD [address], [place], [address] , [facility] 4 15:38:05 Right inguinal hernia 091334308 Active 2023 Cristian Bhardwaj MD [address], [place], [address] , [facility] 4 15:38:16 Nausea and vomiting 76428752 Active 2024 Cristian Bhardwaj MD [address], [place], [address] , [facility] 5 16:47:49 Problem Notes None recorded. Procedures Surgical History Date Name Laterality Status Provider Name and Address Organization Details Recorded Time 3 Medicare Wellness CPT Code, subsequent completed Saray Arnold RN [facility] 02/11/2023 11:08:35 Imaging Results Imaging Date Name Status LastModified by Organization Details LastModified Time 08/19/2023 MRI, lumbar spine, w/o contrast completed [address] (Imaging) [address] [place], [address], 08/19/2023 20:46:37 10/24/2023 MRI, cervical spine, w/o contrast completed [address] (Imaging) [address] [place], [address], 10/24/2023 15:02:12 12/04/2023 electromyogram + nerve conduction study completed [place] [id number] [facility] [address], [place], [address], 12/04/2023 13:55:32 Procedure Notes None recorded. Medical Equipment None Reported. Allergies Allergen ID Allergen Name Allergen Category Reaction Reaction Severity Criticality Documentation Date Start Date Code Code System Note Provider Name and Address Organization Details Recorded Time 16788 codeine medicatio n nausea Not available Not available 10/10/2022 2670 RxNorm GI DISTR ESS Not Available [facility] 14:14:23 Medications Name Sig Start Date Stop Date Status Note LastModified by Organization Details LastModified Time amoxicillin 500 mg capsule Take 1 capsule 3 times a day by oral route for 10 days. 08/14 completed Not Available Not Available Not Available Percocet 7.5 mg-500 mg tablet Take 1 tablet every 6 hours by oral route. 2012 active Not Available Not Available Not Avai lable citalopram 40 mg tablet TAKE 1 TABLET BY MOUTH EVERY DAY active Not Available Not Available No t Available azithromyci n 250 mg tablet TK 2 TS PO ON DAY 1, THEN TK 1 T PO D FOR 4 DAYS 08/09 completed Not Available Not Available Not Available pravastatin 40 mg tablet TAKE TWO TABLETS AT BEDTIME active Not Available Not Available No t Available benzonatate 200 mg capsule Take 1 capsule 3 times a day by oral route. 11/06 completed Not Available Not Available Not Available Nicoderm CQ 21 mg/24 hr daily transdermal patch Apply 1 patch every day by transderm al route. 05/04 completed Not Available Not Available Not Available Ultram 50 mg tablet Take 1 tablet every 6 hours by oral route. 08/17 completed Not Available Not Available Not Available Tessalon Perles 100 mg capsule Take 1 capsule 3 times a day by oral route. active Not Available Not Available No t Available pravastatin 80 mg tablet TAKE 1 TABLET BY MOUTH EVERY NIGHT AT BEDTIME active Not Available Not Available No t Available lorazepam 0.5 mg tablet TAKE 1 TABLET BY MOUTH THREE TIMES DAILY active Not Available Not Available No t Available hydrocodone 7.5 mg-acetamin ophen 325 mg tablet DONE IN ERROR active Not Available Not Available No t Available diclofenac sodium 75 mg tablet,star yed release TAKE 1 TABLET BY MOUTH TWICE DAILY active Not Available Not Available No t Available Feldene 20 mg capsule Take 1 capsule every day by oral route. 2012 active Not Available Not Available Not Avai lable diclofenac sodium 50 mg tablet,star yed release TAKE ONE TABLET BY MOUTH TWICE A DAY active Not Available Not Available No t Available Levaquin 500 mg tablet Take 1 tablet every 24 hours by oral route. active Not Available Not Available No t Available oxycodone-a cetaminophe n 7.5 mg-325 mg tablet TAKE 1 TABLET BY MOUTH EVERY 6 HOURS active Not Available Not Available No t Available methylpredn isolone 4 mg tablets in a dose pack Take by oral route as per package insert 03/06 completed Not Available Not Available Not Available Naprosyn 500 mg tablet Take 1 tablet twice a day by oral route. 02/14 completed Not Available Not Available Not Available ondansetron 4 mg disintegrat ing tablet DISSOLVE 2 TABLETS ON THE TONGUE TWICE DAILY active Not Available Not Available No t Available fluticasone propionate 50 mcg/actuati on nasal spray,suspe nsion [place] 1 spray every day by intranasa l route. active Not Available Not Available No t Available Sutab 1.479-0.188 -0.225 gram tablet FOLLOW PACKAGE DIRECTION S active Not Available Not Available No t Available Vitals Date Recorded Body height Body mass index (BMI) Body weight Heart rate Body temperature Oxygen saturation Oxygen saturation in Arterial blood by Pulse oximetry Systolic blood pressure Diastolic blood pressure Provider Name and Address Organization Details Last Updated DateTime 3 163.83 cm 22.1 kg/m2 61755.6 g 64 /min 97 [degF] 93 % 93 % 120 mm[Hg] 62 mm[Hg] Sofya Rios [facility] [employer] [facility] [employer] 3 10:59:40 Date Recorded Pain severity - 0-10 verbal numeric rating [Score] - Reported Provider Name and Address Organization Details Last Updated DateTime 02/11/2023 8 Saray Arnold RN [facility] [employer] [facility] 02/11/2023 11:08:54 Date Recorded Body height Body mass index (BMI) Body weight Body temperature Heart rate Respiratory rate Systolic blood pressure Diastolic blood pressure Provider Name and Address Organization Details Last Updated DateTime 3 163.83 cm 22.3 kg/m2 97940.1 9 g 97.3 [degF] 70 /min 16 /min 130 mm[Hg] 76 mm[Hg] Chantal Summers RN [facility] [employer] [facility] 3 10:44:19 Date Recorded Body height Body mass index (BMI) Body weight Heart rate Body temperature Oxygen saturation Oxygen saturation in Arterial blood by Pulse oximetry Systolic blood pressure Diastolic blood pressure Provider Name and Address Organization Details Last Updated DateTime 4 163.83 cm 21.6 kg/m2 64612.8 2 g 73 /min 97.3 [degF] 94 % 94 % 120 mm[Hg] 64 mm[Hg] DARIANA Franco [facility] [employer] [facility] 4 12:11:38 Date Recorded Body height Body mass index (BMI) Body weight Heart rate Body temperature Oxygen saturation Oxygen saturation in Arterial blood by Pulse oximetry Systolic blood pressure Diastolic blood pressure Provider Name and Address Organization Details Last Updated DateTime 4 163.83 cm 20.3 kg/m2 46984.0 8 g 72 /min 97 [degF] 95 % 95 % 130 mm[Hg] 80 mm[Hg] DARIANA Franco [facility] [employer] [facility] 4 15:19:28 Date Recorded Body height Body mass index (BMI) Body weight Heart rate Body temperature Oxygen saturation Oxygen saturation in Arterial blood by Pulse oximetry Systolic blood pressure Diastolic blood pressure Provider Name and Address Organization Details Last Updated DateTime 5 157.48 cm 21.9 kg/m2 52661.2 9 g 60 /min 97 [degF] 94 % 94 % 124 mm[Hg] 72 mm[Hg] Sofya Rios [facility] [employer] [facility] 5 15:26:42 Social History Question Answer Notes LastModified by Organizat ion Details LastModified Time Tobacco Smoking Status Current Every Day Smoker Not Available [employer] 10/10/2022 14:10:24 Do You Have An Advance Directive? No MIGRATION.[id number] Information not available 10/10/2022 What Is Your Level Of Alcohol Consumption? None MIGRATION.08100 14857 Information not available 10/10/2022 Are You Blind Or Do You Have Difficulty Seeing? No MIGRATION.11303 57199 Information not available 10/10/2022 Are You Deaf Or Do You Have Serious Difficulty Hearing? No MIGRATION.73407 98909 Information not available 10/10/2022 What Type Of Diet Are You Following? REGULAR MIGRATION.56038 34953 Information not available 10/10/2022 Have There Been Any Changes To Your Family Or Social Situation? No MIGRATION.99209 79660 Information not available 10/10/2022 What Is The Fluoride Status Of Your Home? Unknown MIGRATION.03257 05418 Information not available 10/10/2022 Are There Any Guns Present In Your Home? Yes MIGRATION.87621 35958 Information not available 10/10/2022 Do You Use Insect Repellent Routinely? No MIGRATION.10796 88400 Information not available 10/10/2022 Where Do You Live? [place] MIGRATION.37190 46149 Information not available 10/10/2022 Do You Have A Medical Power Of Psychiatric Orderly? No MIGRATION.28774 01783 Information not available 10/10/2022 What Was The Date Of Your Most Recent Tobacco Screening? 11/15/2021 MIGRATION.92978 11762 Information not available 10/10/2022 Do You Have Any Pets? Yes MIGRATION.55325 31191 Information not available 10/10/2022 What Is Your Relationship Status? MIGRATION.94376 49464 Information not available 10/10/2022 Do You Use Your Seat Belt Or Car Seat Routinely? Yes MIGRATION.92195 77589 Information not available 10/10/2022 Do You Have Smoke And Carbon Monoxide Detectors In Your Home? Yes MIGRATION.08523 59421 Information not available 10/10/2022 At What Age Did You Start Smoking Tobacco? 18 MIGRATION.60904 44790 Information not available 10/10/2022 How Much Tobacco Do You Smoke? 1 PPD MIGRATION.52688 59162 Information not available 10/10/2022 Do You Use Sunscreen Routinely? No MIGRATION.61274 30969 Information not available 10/10/2022 How Many Years Have You Smoked Tobacco? 50 MIGRATION.42561 94288 Information not available 10/10/2022 Have You Recently Traveled Abroad? No MIGRATION.59672 06118 Information not available 10/10/2022 Do You Have Any Dietary Restrictions? No MIGRATION.51561 61726 Information not available 10/10/2022 Sex: Unknown Functional Status Question Answer Note LastModified by Organizat ion Details LastModified Time Do you have difficulty walking or climbing stairs? No MIGRATION.[id number] 026 Information not available 10/10/2022 Do you have transportation difficulties? No MIGRATION.[id number] 026 Information not available 10/10/2022 Are you able to walk? YESWOREST MIGRATION.7096249 026 Information not available 10/10/2022 Do you have difficulty doing errands alone? No MIGRATION.0374143 026 Information not available 10/10/2022 Are you able to care for yourself? Yes MIGRATION.1991955 026 Information not available 10/10/2022 Do you have difficulty dressing or bathing? No MIGRATION.4596142 026 Information not available 10/10/2022 What is your exercise level? None MIGRATION.[id number] 026 Information not available 10/10/2022 Mental Status Question Answer Note LastModified by Organizat ion Details LastModified Time Do you have difficulty concentrating, remembering or making decisions? No MIGRATION.[id number] 6 Information not available 10/10/2022 Family History Nothing Reported Notes:Mother 80 yea rs old Father unknown health status 1 Sisters 1 Living COPD Mother Hx: ASHD, Asthma, HTN Medical History Condition Response NERVE DISEASE N BLINDNESS N RHEUMATIC FEVER N KIDNEY STONES N BLADDER PROBLEMS N MRSA N OTHER # 1 N POLIO N LUNG DISEASE/DISORDER N HISTORY OF DRUG ABUSE N RADIATION / CHEMOTHERAPY N COPD N Other # 2 N BLOOD DISEASES N EAR OR HEARING PROBLEMS N MUMPS N SHINGLES N BOWEL PROBLEMS N DEPRESSION (INCLUDING POST ) Y STROKE/TIA N ULCERS N BENIGN PROSTATIC HYPERPLASIA N MEASLES N HYPOTENSION N MYOCARDIAL INFARCTION N OBESITY N GERD/NAUSEA N ANEURYSM N URINARY/BLADDER/KIDNEY PROBLEMS N CORONARY ARTERY DISEASE (CAD) N ADDICTION CONCERNS N Impotence N ENDOMETRIOSIS N USE OF BLOOD THINNERS N SKIN PROBLEMS N GASTROINTESTINAL DISORDER N PERIPHERAL VASCULAR DISEASE N MUSCLE,JOINT OR BONE PROBLEMS N GASTROINTESTINAL BLEEDING N BLOOD CLOTS N ASTHMA N CATARACTS N ERECTILE DYSFUNCTION N VARICOSITIES N GI PROBLEMS N Low Testosterone N INFERTILITY N AIDS/HIV N CHEMOTHERAPY / RADIATION N LIVER DISEASE N MALE HYPOGONADISM N HYPERTENSION N Deficiency N TOURETTE'S N ANXIETY DISORDER N BLOOD TRANSFUSION N ANEMIA/BLOOD DISORDER N CHRONIC EAR INFECTIONS N BRONCHITIS N TUBERCULOSIS N GLAUCOMA N FOOT PROBLEM N DIVERTICULITIS N SLEEP APNEA N CHICKENPOX N INFECTIOUS DISEASE N PROSTATE N HEART ARRHYTHMIA N INSOMNIA N HIGH CHOLESTEROL / HYPERLIPIDEMIA Y EYE PROBLEMS N HYPERTHYROIDISM N EDEMA N CHRONIC PAIN SYNDROME N HYPOTHYROIDISM N CONSTIPATION N CAROTID BLOCKAGE N BACK / NECK PROBLEMS Y HAVE YOU BEEN HOSPITALIZED OR SEEN IN [facility] IN THE PAST YEAR ? N ATHEROSCLEROSIS N BREAST PROBLEMS N DIALYSIS N ECZEMA N OSTEOPOROSIS N ARTHRITIS N NO SIGNIFICANT PAST MEDICAL HISTORY N APPENDICITIS N DIABETES, TYPE N BAD TEETH N ENT N HEARTBURN / REFLUX Y AUTISM SPECTRUM DISORDER (ASD) N HEPATITIS / LIVER DISEASE Y GOUT N SLEEP DISORDER N ALZHEIMER'S DISEASE N Brain Problems N DEMENTIA N HERPES N SEIZURES/EPILEPSY N HEADACHES/MIGRAINES N VASCULAR DISEASE N PACEMAKER N Blood Disorder N DIZZINESS N HEART DISEASE/HEART PROBLEMS N KIDNEY DISEASE N MULTIPLE SCLEROSIS N CANCER: SPECIFY N CARDIAC ARRHYTHMIA N ATRIAL FIBRILLATION N Gall Stones N PULMONARY EMBOLISM N AUTOIMMUNE DISEASE N Immunizations Vaccine Type Date Status Note Provider Nam e and Address Organization Details Recorded Time SARS-COV-2 (COVID-19) vaccine, UNSPECIFIED 1 completed Not Available [facility] 10/10/2022 14:14:19 SARS-COV-2 (COVID-19) vaccine, UNSPECIFIED 1 completed Not Available [facility] 10/10/2022 14:14:19 Pneumococcal conjugate PCV 13 2 completed Not Available [facility] 10/10/2022 14:14:20 Influenza, high-dose, quadrivalent, PF 1 completed Not Available [facility] 10/10/2022 14:14:20 pneumococcal polysaccharide PPV23 3 completed PHILIP Woods Lidia MD [employer] [facility] 02/11/2023 15:52:56 Past Encounters Encounter ID Performer Location Encounter Start Date Encounter Closed Date Diagnosis/Indication Diagnosis SNOMED-CT Code Diagnosis ICD10 Code Diagnosis Note [id number] Cristian Bhardwaj MD [facility] [place] [address] [address] 03/08/2021 00:00:00 03/08/2021 11:58:25 [id number] Cristian Bhardwaj MD [facility] [place] [address] [address] 07/12/2021 00:00:00 07/12/2021 12:00:19 [id number] Cristian Bhardwaj MD [facility] [place] [address] [place] [address] [address] 11/15/2021 00:00:00 11/15/2021 11:56:00 [id number] Cristian Bhardwaj MD [facility] [place] [address] [place] [address] [address] 04/12/2022 00:00:00 04/12/2022 11:35:28 [id number] Cristian Bhardwaj MD [facility] [place] [address] [place] [address] [address] 08/09/2022 00:00:00 08/09/2022 12:06:18 [id number] Cristian Bhadrwaj MD [facility] [place] [address] [place] [address] [address] 02/11/2023 10:44:29 02/11/2023 11:37:24 Adult health examination 514604050 Z00.00 Screening for disorder 362835683 Z13.9 Pure hypercholesterolemia 271942832 E78.00 Spinal mike nosis of lumbar region 91516828 M48.061 Chronic pain syndrome 37 2286479 G89.4 Disorder of prostate 302 51398 N42.9 Long-term current use of opiate analgesic drug 7037016526 14572 Z79.891 Administra tion of pneumococcal vaccine 73934612 Z23 [id number] Cristian Bhardwaj MD [facility] [place] [address] [place] [address] [address] 08/08/2023 10:30:22 08/08/2023 11:15:47 Chronic pain syndrome 002929935 G89.4 Depressive disorder 3548 9007 F32.A Pure hypercholesterolemia 477662192 E78.00 Disorder of prostate 302 41785 N42.9 Long-term current use of opiate analgesic drug 3953316328 25369 Z79.286 [id number] Cristian Bhardwaj MD [facility] [place] [address] [place] [address] [address] 10/10/2023 12:05:35 10/10/2023 12:34:53 Numbness of hand 722578449 R20.0 [id number] Cristian Bhardwaj MD [facility] [place] [address] [address] 06/10/2024 15:08:48 06/10/2024 15:49:14 Chronic pain syndrome 240130483 G89.4 Pure hypercholesterolemia 095339274 E78.00 Spinal mike nosis of lumbar region 78754722 M48.061 Left inguinal hernia 236 464337 K40.90 Right inguinal hernia 23 1778088 K40.90 [id number] Cristian Bhardwaj MD [facility] [place] [address] [address] 10/14/2024 15:05:10 10/14/2024 15:59:06 Pure hypercholesterolemia 440649685 E78.00 Gastroesop hageal reflux disease 455848861 K21.9 Depressive disorder 3548 9007 F32.A Chronic pain syndrome 37 7533154 G89.4 Disorder of prostate 302 41679 N42.9 Long-term current use of opiate analgesic drug 8164836899 71710 Z79.891 Health Concerns Section Related Observation LastModified by Organization Detai ls LastModified Time None Recorded Concern Status LastModified by Organization Details LastModified Time None Recorded Advance Directives Directive N: Payers Encounter Date Sequence Insurance Name Policy Number Policy Schulz Covered Member ID Schulz Member ID Guarantor Name 02/11/2023 1 [employer] (MEDICARE REPLACEMENT/A DVANTAGE - HMO) [id number] Michael Jain [id number] Michael Jain 08/08/2023 1 [employer] (MEDICARE REPLACEMENT/A DVANTAGE - HMO) [id number] Michael Jain [id number] Michael Jain 10/10/2023 1 [employer] (MEDICARE REPLACEMENT/A DVANTAGE - HMO) [id number] Michael Jain [id number] Michael Jain 06/10/2024 1 [employer] (MEDICARE REPLACEMENT/A DVANTAGE - HMO) [id number] Michael Jain [id number] Michael Jain 10/14/2024 1 [employer] (MEDICARE REPLACEMENT/A DVANTAGE - HMO) [id number] Michael Jain [id number] Michael Jain Notes Date Note Type Note Provider Name and Address Organization Details Recorded Time 3 text/html Patient Name: Michael JainDate Of Service: Saturday ( 02.11.2023 ): 1955 Age: 67 There has been approximately a 9 lb weight loss since 08/09/2022. This represents approximately a 6.4% change in weight. Weight change attributable to lifestyle changes. Vital Signs:Blood Pressure: Sitting Rt. Arm 120/62Pulse: Sitting 64 /min and RegularRespirations: 12Height 64.5 in or 1.6 mWeight 131 lb or 59.4 kgBMI 22.1Temperature: 97 F or 36.1 CPulse Oximetry: 93 % at rest on no oxygen Chief Complaint: Addressed in HPI Problems or conditions discussed in the HPI were the only ones reviewed during the encounter.Only social and family history addressed in the HPI were reviewed during this encounter. A significant, separate E/M service was performed to evaluate the current and new problems. Attendant(s): Constitutional and Systemic Symptoms: none Medication Reconciliation: from medication list. History of Present Illness Reviewed the findings of the preventative health visit. Addressed all areas with the patient, patient's family or caregivers. Preventative examinations and testing immunizations - vaccinations, colonic neoplasm screening and LDCT thorax all reviewed and ordered where patient was amenable to the recommendations. Cognitive function was normal. Depression addressed and where necessary medications were adjusted or instituted. End of life and living will briefly discussed with patient and where these can be filled out and legally executed. Other blood and imaging studies were ordered if considered necessary. Other recommendations may be found in the encounter note. #1. Type II Hypercholesterolaemia: Currently taking medication and tolerating well. No interval complaints of any muscle pain or arthralgia. No significant liver changes with medications. Last lipid panel: fair control. Therapy reviewed regarding treatment of cholesterol management and include diet and Pravachol. #2. Complaining of pain and discomfort right sacroiliac area particularly with ambulation. Is able ambulate approximately 100-150 feet before developed pain or discomfort in the right sacroiliac areas radiation down into the leg. Pain is severe enough that he must stop set weight for several minutes and then continue. Denies any numbness tingling weakness or any other associated neurological complaints. A previous MRI done approximately five years ago demonstrated rather significant spinal stenosis at that time. It is concerning that the symptoms have escalated in symptomatology and may be reaching a level that may need surgical intervention.: #3. Chronic pain management for chronic Neurogenic claudication right leg during ambulation Since last examination has increased in severity Interval Testing: noneHas tried NSAIDS partial relief requiring additional medication. Pain Description: constant - intermittently exacerbated, exacerbated by activity and interferes with enjoyment and ability to perform daily tasks. Severity: 5 ]. Currently seeing or has seen in the past a Heel Finisher: NoPain - Enjoyment of Life - General Activity ScalePain on Average: 5Enjoyment of Live: 4General Activity: 5Score: 5Currently regimen consists of Percocet as prescribed with no evidence of abuse or self prescribing. Current Average Morphine Milligram Approximate Equivalent: 30 mg approximated if taking full dosage daily. Recommend: NABenzodiazepines or other hypnotics: yes and have discussed reducing doseAlternative pain management modalities (acupuncture - behavior therapy- additional PT - SNRIs) have been discussed and have either been tried in the past or not acceptable alternatives to patient or not available in our location.Will kept medications the same.Urine Testing: will be performed and patient instructed that failure of testing within a 24 hour period from time of order may result in termination of medication.Controlled substance database yes and no discrepancies or multiple prescribers noted.Patient reports condition is stable and is able to function with the medication. Denies any misuse or adverse effects.TREATMENT OBJECTIVE: Enhance ability to manage pain independently, improved function and sustain quality of life. Recommendations or alternative therapies and lifestyle changes are discussed on each visit. Has shown improvement inf functionality. Has been educated on the side effects,risks and any black box warnings. Has verbalized the dangers of some of the medications regarding driving and cooperating heavy machinery and have advised against this. .Medication List Reviewed and Reconciled 02/11/2023Voltaren 75 MG (TABLET, DELAYED RELEASE - ORAL) One BidPercocet 325 MG-7.5 MG (TABLET - ORAL) TidAtivan 0.5 MG (TABLET - ORAL) One Three Times A DayPravachol 80 MG (TABLET - ORAL) One At BedtimeCelexa 40 MG (TABLET - ORAL) Once DailyVaccination and Wbymkzezrfji0874-88 Pneumovax 816063-08 Prevnar 395530-31 Fzmhghvpx2668-82 Covid ModernaSurgical HistoryRt. Rotator Cuff, Lumbar Laminectomy, Lumbar Laminectomy, Cervical LaminectomyPreventative Testing Confirmed by Our Qjyrbol2612/06/2021 ALBUMIN 4.9 G/DL H109/10/2020 PSA 2.94 NG/ML03/25/2014 COLONOSCOPY (7 YEARS) 03/25/2021ocial HistorySOCIAL HISTORY:Marital Status: MLiving Status: With SpouseOccupational Exposure:Smoking Hx: .5 packs of cigarettes per day for 30 years. Drinking Hx: 12 oz of coffee per day, 16 oz of soft drinks per day.Exercise: InfrequentlySexual Hx: Sexually ActiveOccupation: Bus DriverFamily HistoryFAMILY HISTORY:Mother 80 years oldFather unknown health status1 Sisters 1 Living COPDMother Hx: ASHD, Asthma, HTN Cristian Bhardwaj MD [address] [facility], [place], [address], [facility] [employer] 02/11/2023 11:34:34 3 text/html Patient Name: Michael JainDate Of Service: July ( 08.08.2023 ): 1955 Age: 68 Vital Signs:Blood Pressure: Sitting Rt. Arm 130/76Pulse: Sitting 70 /min and RegularRespiratory Rate: 16Height 64 in or 1.6 mWeight 132 lb or 59.9 kgBMI 22.7Temperature: 97.3 F or 36.3 CPulse Oximetry: 94 % at rest on no oxygen Chief Complaint: Addressed in HPI Problems or conditions discussed in the HPI were the only ones reviewed during the encounter.Only social and family history addressed in the HPI were reviewed during this encounter. Attendant(s): WifeConstitutional and Systemic Symptoms:none Medication Reconciliation: from medication list. History of Present Illness #1. Type II Hypercholesterolaemia: Currently taking medication and tolerating well. No interval complaints of any muscle pain or arthralgia. No significant liver changes with medications. Last lipid panel: fair control. Therapy reviewed regarding treatment of cholesterol management and include diet and Pravachol. #2. Hx of depression currently stable. Pharmacological treatment : Celexa . Suicidal thoughts or ideas: None Loss of appetite: No Sleep Disturbance: No Hallucinations: No Is currently seeing no one. Discussed possibility of decreasing and weaning off medication. Feels that current regimen is working fine and wishes not to change the current treatment regimen. No contraindication to continue current therapy. #3. Chronic pain management for chronic lumbar Since last examination has increased in severity Interval Testing: noneHas tried NSAIDS partial relief requiring additional medication. Pain Description: constant, sharp, stabbing, exacerbated by activity and interferes with enjoyment and ability to perform activities of daily living. Currently seeing or has seen in the past a Heel Finisher: Yes .Pain - Enjoyment of Life - General Activity ScalePain on Average: 6Enjoyment of Live: 5General Activity: 5Enjoyment of Life - General Activity Scale: 5Currently regimen consists of Percocet and Voltaren as prescribed with no evidence of abuse or self prescribing. Current Average Morphine Milligram Approximate Equivalent: 40 mg approximated if taking full dosage daily. Recommend: Recommended but declined.Benzodiazepines or other hypnotics: yes but very low dose of Ativan 0.5 mg 3 times daily.Alternative pain management modalities (acupuncture - behavior therapy- additional PT - SNRIs) have been discussed and have either been tried in the past or not acceptable alternatives to patient or not available in our location.Will kept medications the same.Urine Testing: will be performed and patient instructed that failure of testing within a 24 hour period from time of order may result in termination of medication.Controlled substance database yes and no discrepancies or multiple prescribers noted. Pill counts when available have been acceptable. No other signs of any abuse.Patient reports condition is stable and is able to function with the medication. Denies any misuse or adverse effects.TREATMENT OBJECTIVE: Enhance ability to manage pain independently, improved function and sustain quality of life. Recommendations or alternative therapies and lifestyle changes are discussed on each visit. Has shown improvement inf functionality. Has been educated on the side effects,risks and any black box warnings. Has verbalized the dangers of some of the medications regarding driving and cooperating heavy machinery and have advised against this.Medication List Reviewed and Reconciled 08/08/2023Voltaren 75 MG (TABLET, DELAYED RELEASE - ORAL) One BidPercocet 325 MG-7.5 MG (TABLET - ORAL) TidAtivan 0.5 MG (TABLET - ORAL) One Three Times A DayPravachol 80 MG (TABLET - ORAL) One At BedtimeCelexa 40 MG (TABLET - ORAL) Once DailyVaccination and Txthdufxykid0596-31 Iovhsvjqf8044-67 Prevnar 13 Tp9523-43 Ruqzxybsi8487-97 Covid ModernaSurgical HistoryRt. Rotator Cuff, Lumbar Laminectomy, Lumbar Laminectomy, Cervical LaminectomyPreventative Testing Confirmed by Our Nlgvmxj4512/06/2021 ALBUMIN 4.9 G/DL H109/10/2020 PSA 2.94 NG/ML N003/25/2014 COLONOSCOPY (7 YEARS) 03/25/2021ocial HistorySOCIAL HISTORY:Marital Status: MLiving Status: With SpouseOccupational Exposure:Smoking Hx: .5 packs of cigarettes per day for 30 years. Drinking Hx: 12 oz of coffee per day, 16 oz of soft drinks per day.Exercise: InfrequentlySexual Hx: Sexually ActiveOccupation: Bus DriverFamily HistoryFAMILY HISTORY:Mother 80 years oldFather unknown health status1 Sisters 1 Living COPDMother Hx: ASHD, Asthma, HTN Cristian Bhardwaj MD [address], [address], [facility] [employer] 08/08/2023 10:54:40 4 text/html Patient Name: Michael Jasonte Of Service: October 10 2023 ( 10.10.2023 ): 1955 Age: 68 There has been approximately a 4 lb weight loss since 08/08/2023. This represents approximately a 3.0% change in weight. Weight change attributable to lifestyle changes. Vital Signs:Blood Pressure: Sitting Rt. Arm 120/64Pulse: Sitting 73 /min and RegularRespiratory Rate: 12Height 64 in or 1.6 mWeight 128 lb or 58.1 kgBMI 22.0Temperature: 97.3 F or 36.3 CPulse Oximetry: 94 % at rest on no oxygen Chief Complaint: Addressed in HPI Problems or conditions discussed in the HPI were the only ones reviewed during the encounter.Only social and family history addressed in the HPI were reviewed during this encounter. Attendant(s): NoneConstitutional and Systemic Symptoms:none Medication Reconciliation: from medication list. History of Present Illness #1. Two week history of bilateral hand numbness in the hands extending from the wrist on down into both hands. Has had some difficulty in putting objects as well as picking up objects. No history of any type of pain or discomfort. The paresthesias do not extend above the wrist . No associated neck pain or any difficulty in ambulating. There is no ataxia or any other myelopathic type symptomatology. 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 Has not had any recent injuries. Has been no change in medications. No other associated symptoms. There was no precipitating or aggravating factors that can increase or decrease symptomatology.: Active Medication ListVoltaren 75 MG (TABLET, DELAYED RELEASE - ORAL) One BidPercocet 325 MG-7.5 MG (TABLET - ORAL) TidAtivan 0.5 MG (TABLET - ORAL) One Three Times A DayPravachol 80 MG (TABLET - ORAL) One At BedtimeCelexa 40 MG (TABLET - ORAL) Once Daily Vaccination and [id number] Kluvxcdrv3908-60 Prevnar 13 Ge4769-45 Jeplhekxb5518-78 Covid Moderna Surgical Njnqwjq8018-53 Rt. Rotator Hvbw6607-84 Lumbar Jrdtijvrlxe6395-89 Lumbar Ivofbogecup5857-10 Cervical Laminectomy Preventative Vqarsvr5408/08/2023 ALBUMIN 4.2 G/DL08/08/2023 PSA <0.064 NG/ML03/25/2014 COLONOSCOPY (7 YEARS) 03/25/2021 Social HistorySOCIAL HISTORY:Marital Status: MLiving Status: With SpouseOccupational Exposure:Smoking Hx: .5 packs of cigarettes per day for 30 years. Drinking Hx: 12 oz of coffee per day, 16 oz of soft drinks per day.Exercise: InfrequentlySexual Hx: Sexually ActiveOccupation: Bus DriverFamily HistoryFAMILY HISTORY:Mother 80 years oldFather unknown health status1 Sisters 1 Living COPDMother Hx: ASHD, Asthma, HTN Cristian Bhardwaj MD [address], [address], [place], [address], [place] [facility] 10/10/2023 12:31:10 4 text/html Patient Name: Michael Noe CristobalDate Of Service: Saturday ( 06.10.2024 ): 1955 Age: 69 There has been approximately a 8 lb weight loss since 10/10/2023. This represents approximately a 6.3% change in weight. Weight change attributable to lifestyle changes. Vital Signs:Blood Pressure: Sitting Rt. Arm 130/80Pulse: Sitting 72 /min and RegularRespiratory Rate: 16Height 64 in or 1.6 mWeight 120 lb or 54.4 kgBMI 20.6Temperature: 97 F or 36.1 CPulse Oximetry: 95 % at rest on no oxygen Chief Complaint: Addressed in HPI Problems or conditions discussed in the HPI were the only ones reviewed during the encounter.Only social and family history addressed in the HPI were reviewed during this encounter. Attendant(s): NoneConstitutional and Systemic Symptoms:none Medication Reconciliation: from medication list. [id number]: MRI of the lumbar spine there is a rightward curvature of the lumbar spine. Partial fusion of L4-L5. L1-L2 posterior disc bulge with thecal sac measuring approximately 10 mm in AP dimension. L2-L3 posterior disc bulge thecal sac measuring approximately 8 mm. Severe bilateral neural foraminal stenosis. L3-L4 posterior disc bulge thecal sac measuring 8 mmHg. L5-S1 posterior disc bulge with thecal sac measuring approximately 11 mmHg. Impression rightward her which are 5 mm right lateral listhesis at L2-L3 and 12 mm at L3-L4. 4 mm retrolisthesis at L2-L3 and 4 mm at L3-L4 and 5 mm L4-L5 10-24-2023: MRI of the cervical spine spinal stenosis at C2-C3, C3- C4, and C4-C5 levels. There is some indentation of the spinal cord. Recommend a neurosurgical consult. 12-04-2023: Nerve conduction study showed bilateral carpal tunnel left greater than right. Suggest possible surgical consult History of Present Illness #1. Type II Hypercholesterolaemia: Currently not taking medication. No interval complaints of any muscle pain or arthralgia. No significant liver changes with medications. Last lipid panel: no testing since starting on medication. Therapy reviewed regarding treatment of cholesterol management and include diet and Pravachol. #2. Spinal Stenosis: History of the cervical and Lumbar spinal stenosis. Neurogenic Claudication: no. No change in level of pain, numbness, tingling or any weakness. Is able to perform activities of daily living. No urinary or fecal incontinence. No change in exercise tolerance. #3. Chronic pain management for chronic cervical and lumbar Since last examination no significant change since last examination Interval Testing: noneHas tried NSAIDS partial relief requiring additional medication. Pain Description: constant - intermittently exacerbated, exacerbated by activity and interferes with enjoyment and ability to perform activities of daily living. Currently seeing or has seen in the past a Heel Finisher: No .Pain - Enjoyment of Life - General Activity ScalePain on Average: 5Enjoyment of Live: 4General Activity: 5Enjoyment of Life - General Activity Scale: 4Currently regimen consists of Percocet as prescribed with no evidence of abuse or self prescribing. Current Average Morphine Milligram Approximate Equivalent: 30 mg approximated if taking full dosage daily. Recommend: NA.Benzodiazepines or other hypnotics: yes and have discussed reducing dose.Alternative pain management modalities (acupuncture - behavior therapy- additional PT - SNRIs) have been discussed and have either been tried in the past or not acceptable alternatives to patient or not available in our location.Will kept medications the same.Urine Testing: will be performed and patient instructed that failure of testing within a 24 hour period from time of order may result in termination of medication.Controlled substance database yes and no discrepancies or multiple prescribers noted. Pill counts when available have been acceptable. No other signs of any abuse.Patient reports condition is stable and is able to function with the medication. Denies any misuse or adverse effects.TREATMENT OBJECTIVE: Enhance ability to manage pain independently, improved function and sustain quality of life. Recommendations or alternative therapies and lifestyle changes are discussed on each visit. Has shown improvement inf functionality. Has been educated on the side effects,risks and any black box warnings. Has verbalized the dangers of some of the medications regarding driving and cooperating heavy machinery and have advised against this. #4. Bilateral inguinal hernias left greater than right. Non reducible on the left. But not strangulated.: Active Medication ListVoltaren 75 MG (TABLET, DELAYED RELEASE - ORAL) One BidPercocet 325 MG-7.5 MG (TABLET - ORAL) TidAtivan 0.5 MG (TABLET - ORAL) One Three Times A DayPravachol 80 MG (TABLET - ORAL) One At BedtimeCelexa 40 MG (TABLET - ORAL) Once Daily Vaccination and Immunization( ) 2024-05 INFLUENZA(X) 2020-11 COVID MODERNA( ) 2023-02 PNEUMOVAX( ) 2021-11 PREVNAR 13 GC Surgical Wriquqm6998-59 Cervical Spinal Qfmhyked0735-06 Rt. Rotator Aosg7910-38 Lumbar Ygqzaryfqgp9270-56 Lumbar Onomwgpddyb1696-24 Cervical Laminectomy Preventative Testing( ) 08/08/2023 Albumin 4.2 G/DL( ) 08/08/2023 PSA <0.064 NG/ML 08/08/2025(X) 03/25/2014 Colonoscopy (7 Years) 03/25/2021 Social HistorySOCIAL HISTORY:Marital Status: MLiving Status: With SpouseOccupational Exposure:Smoking Hx: .5 packs of cigarettes per day for 30 years. Drinking Hx: 12 oz of coffee per day, 16 oz of soft drinks per day.Exercise: InfrequentlySexual Hx: Sexually ActiveOccupation: Bus DriverFamily HistoryFAMILY HISTORY:Mother 80 years oldFather unknown health status1 Sisters 1 Living COPDMother Hx: ASHD, Asthma, HTN TEST RESULT RANGE UNITSCBC/COMPLETE BLD COUNT W/DIFF Date: 08/08/2023WHITE BLOOD CELLS 10.2 4.2-10.8 X10'3/ULHEMOGLOBIN 12.4 13.2-17.0 G/DLHEMATOCRIT 39.3 39.3-50.0 %PLATELETS 235 150-400 X10'3/ULCOMPREHENSIVE METABOLIC PANEL Date: 08/08/2023SODIUM 139 137-145 MMOL/LPOTASSIUM 4.3 3.5-5.1 MMOL/LALKALINE PHOSPHATASE 44 38-126 U/LALANINE AMINOTRANSFERASE 15 0-50 U/LASPARTATE AMINOTRANSFERASE 26 15-46 U/LBILIRUBIN, TOTAL 0.50 0.20-1.30 MG/DLCREATININE 1.30 0.66-1.25 MG/DLBUN 26 8-19 MG/DLGFR 55LIPID PANEL Date: 08/08/2023HOLESTEROL 119 140-199 MG/DLTRIGLYCERIDES 45 0-150 MG/DLHDL CHOLESTEROL 47 40- MG/DLLDL CHOLESTEROL, CALCULATED 63 0-130 MG/DLVITAMIN B12 (COBALAMIN) Date: 10/10/2023VB12 618 239-931 PG/MLPSA, TOTAL Date: 3PSA, TOTAL <0.064 0.00-4.00 NG/ML Cristian Bhardwaj MD [address], [address], [place], [address], [place] [facility] 06/10/2024 15:43:53 5 text/html Patient Name: Michael Jasonte Of Service: Saturday ( 10.14.2024 ): 1955 Age: 69 Vital Signs:Blood Pressure: Sitting Rt. Arm 124/72Pulse: Sitting 60 /min and RegularRespiratory Rate: 16Height 62 in or 1.6 mWeight 119.5 lb or 54.2 kgBMI 21.9Temperature: 97 F or 36.1 CPulse Oximetry: 94 % at rest on no oxygen Chief Complaint: Addressed in HPI Problems or conditions discussed in the HPI were the only ones reviewed during the encounter.Only social and family history addressed in the HPI were reviewed during this encounter. Attendant(s): NoneConstitutional and Systemic Symptoms:none Medication Reconciliation: from medication list. [id number]: MRI of the lumbar spine there is a rightward curvature of the lumbar spine. Partial fusion of L4-L5. L1-L2 posterior disc bulge with thecal sac measuring approximately 10 mm in AP dimension. L2-L3 posterior disc bulge thecal sac measuring approximately 8 mm. Severe bilateral neural foraminal stenosis. L3-L4 posterior disc bulge thecal sac measuring 8 mmHg. L5-S1 posterior disc bulge with thecal sac measuring approximately 11 mmHg. Impression rightward her which are 5 mm right lateral listhesis at L2-L3 and 12 mm at L3-L4. 4 mm retrolisthesis at L2-L3 and 4 mm at L3-L4 and 5 mm L4-L5 10-24-2023: MRI of the cervical spine spinal stenosis at C2-C3, C3- C4, and C4-C5 levels. There is some indentation of the spinal cord. Recommend a neurosurgical consult. 12-04-2023: Nerve conduction study showed bilateral carpal tunnel left greater than right. Suggest possible surgical consult History of Present Illness #1. Type II Hypercholesterolaemia: Currently taking medication and tolerating well. No interval complaints of any muscle pain or arthralgia. No significant liver changes with medications. Last lipid panel: fair control. Therapy reviewed regarding treatment of cholesterol management and include diet and Pravachol. #2. Hx of esophageal reflux currently stable. Hx of Complications: none The severity, duration and intensity of symptoms have improved. Frequency: most meals Treatment consists medications taken on intermittent basis. Current therapy includes no medication. There has been no nausea, eructation, vomiting, hematemesis, dysphagia, velopharyngeal insufficiency and odynophagia. No change in he frequency or intensity of symptoms. Has had no melena. Has had no . Discussed use of H2 antagonists NA. #3. Hx of depression currently stable. Pharmacological treatment : Ativan and Celexa . Suicidal thoughts or ideas: None Loss of appetite: No Sleep Disturbance: No Hallucinations: No Is currently seeing no one. Discussed possibility of decreasing and weaning off medication. Feels that current regimen is working fine and wishes not to change the current treatment regimen. No contraindication to continue current therapy.#4. Chronic pain syndrome clinically stable pain scales and proximally five. Does take Percocet 7.5 mg t.i.d. For the equivalent of approximately 4045 mg of codeine or morphine daily. Is clinically stable. There has been no change in dosage. Has no associated side effects with regards to any type of somnolence, difficulty in executing complex functions or any type of alteration cognitive functioning. Active Medication ListVoltaren 75 MG (TABLET, DELAYED RELEASE - ORAL) One BidPercocet 325 MG-7.5 MG (TABLET - ORAL) TidAtivan 0.5 MG (TABLET - ORAL) One Three Times A DayPravachol 80 MG (TABLET - ORAL) One At BedtimeCelexa 40 MG (TABLET - ORAL) Once Daily TEST RESULT RANGE UNITSCBC/COMPLETE BLD COUNT W/DIFF Date: 06/10/2024WHITE BLOOD CELLS 6.3 4.2-10.8 X10'3/ULHEMOGLOBIN 12.2 13.2-17.0 G/DLHEMATOCRIT 39.3 39.3-50.0 %PLATELETS 268 150-400 X10'3/ULCOMPREHENSIVE METABOLIC PANEL Date: 06/10/2024SODIUM 138 137-145 MMOL/LPOTASSIUM 4.4 3.5-5.1 MMOL/LGLUCOSE 79 70-99 MG/DLBUN 18 8-19 MG/DLCREATININE 1.04 0.66-1.25 MG/DLGFR >60ALKALINE PHOSPHATASE 47 38-126 U/LALANINE AMINOTRANSFERASE 19 0-50 U/LASPARTATE AMINOTRANSFERASE 28 15-46 U/LLIPID PANEL Date: 06/10/2024HOLESTEROL 144 140-199 MG/DLTRIGLYCERIDES 70 0-150 MG/DLHDL CHOLESTEROL 60 40- MG/DLLDL CHOLESTEROL, CALCULATED 70 0-130 MG/DLT4 FREE Date: 06/10/2024FREE T4 0.70 0.78-2.19 NG/DLTSH Date: 06/10/2024THYROID-STIMULATI NG HORMONE 0.381 0.465-4.680 UIU/ML Cristian Bhardwaj MD [address], [address], [place], [address], [place] [facility] [employer] [facility] 10/14/2024 15:52:17
--- OUTSIDE RECORDS SUMMARY | 2024-12-13 18:06 | XMS_ITS | Clinical Summary ---
Author Organization [facility] Address [facility] [place] [address] Care Team Providers Care Assistant Boiler Operator Name Role Phone Cristian Bhardwaj MD Primary Care Provider [phone] Allergies No known active allergies Medications pravastatin (PRAVACHOL) 80 MG tablet Take 1 tablet (80 mg total) by mouth daily. Active citalopram (CELEXA) 40 MG tablet Take 1 tablet (40 mg total) by mouth daily. Active LORazepam (ATIVAN) 0.5 MG tablet Take 1 tablet (0.5 mg total) by mouth 3 (three) times daily. Active Multiple Vitamin (MULTIVITAMIN ADULT OR) Take 1 tablet by mouth daily. Active senna-docusate (SENOKOT-S) 8.6-50 MG tablet Take 1 tablet by mouth daily. 60 tablet 1 4 Active oxyCODONE-aceta minophen (PERCOCET) 5-325 MG tabletIndicatio ns:Acute Pain < 7 Day Supply,postop Take 1-2 tablets by mouth every 6 (six) hours as needed for Pain. Indications: Acute Pain < 7 Day Supply, postop 55 tablet 4 Active naloxone (NARCAN) 4 MG/0.1ML nasal spray 1 spray by Nasal route as needed for Opioid reversal. may repeat every 2 to 3 minutes in alternating nostrils until medical assistance becomes available 1 each 4 01/14/20 25 Active Active Problems Problem Noted Date Diagnosed Date Myelopathy ([facility]) 01/13/2024 Social History Tobacco Use Types Packs/Day Years Used Date Smoking Tobacco: Every Day Cigarettes Smokeless Tobacco: Never Alcohol Use Standard Drinks/Week Comments Never 0 (1 standard drink = 0.6 oz pur e alcohol) [facility] Utilities Answer Date Recorded In the past 12 months has th e electric, gas, oil, or water company threatened to shut off services in your home? No 01/13/2024 Humiliation, Afraid, Rape, and Kick questionnair e Answer Date Recorded Within the last year, have y ou been afraid of your partner or ex-partner? No 01/13/2024 Within the last year, have y ou been humiliated or emotionally abused in other ways by your partner or ex-partner? No Within the last year, have y ou been kicked, hit, slapped, or otherwise physically hurt by your partner or ex-partner? No 01/13/2024 Within the last year, have y ou been raped or forced to have any kind of sexual activity by your partner or ex-partner? No 01/13/2024 Overall Financial Resource Strain (CARDIA) Answe r Date Recorded How hard is it for you to pa y for the very basics like food, housing, medical care, and heating? Not hard at all 01/13/2024 Hunger Vital Sign Answer Date Recorded Within the past 12 months, y ou worried that your food would run out before you got the money to buy more. Never true 01/13/20 24 Within the past 12 months, t he food you bought just didn't last and you didn't have money to get more. Never true 01/13/2024 PRAPARE - Transportation Answer Date Re corded In the past 12 months, has l ack of transportation kept you from medical appointments or from getting medications? No 10/2023 In the past 12 months, has l ack of transportation kept you from meetings, work, or from getting things needed for daily living? No 01/13/2024 Housing Stability Vital Sign Answer Norberto e Recorded In the last 12 months, was t here a time when you were not able to pay the mortgage or rent on time? No 01/13/2024 In the past 12 months, how m any times have you moved where you were living? 0 01/13/2024 At any time in the past 12 m [facility], were you homeless or living in a senior living (including now)? No 01/13/2024 Sex and Gender Information Value Date Recorded Sex Assigned at Not on file Legal Sex Male 9:05 AM CDT Gender Identity Not on file Sexual Orientation Not on file Last Filed Vital Signs Vital Sign Reading Time Taken Comments Blood Pressure 131/75 01/21/2024 7:31 AM CDT Pulse 62 01/21/2024 7:31 AM CDT Temperature 36.5 C (97.7 F) 01/21/2024 7:31 AM CDT Respiratory Rate 18 01/21/2024 7:31 AM CDT Oxygen Saturation 97% 01/21/2024 7:31 AM CDT Inhaled Oxygen Concentration - - Weight 48.2 kg (106 lb 4.2 oz) 01/13/2024 9:50 A M CDT Height 167.6 cm (5' 6 ) 01/13/2024 9:50 AM CDT Body Mass Index 17.15 01/13/2024 9:50 AM CDT Plan of Treatment Health Maintenance Due Date Last Done Comments Colorectal Cancer Screening Colonoscopy (10 Years) 1955 Hepatitis C 02/23/1972 Zoster Vaccines (1 of 2) 02/23/2004 AAA SCREENING 2019 Annual Medicare Wellness Visit 2019 COVID-19 Vaccine ( season) 2024 08/25/2021, 11/18/2020, 11/18/2020, Additional history exists RSV Immunization or 60+ Years (1 - 1-dose 75+ series) 2029 DTaP, Tdap and Td Vaccines (3 - Td or Tdap) 01/22/2034 01/23/2024, 01/10/2007 Pneumococcal Vaccine: 50+ Years Completed 02/11/2023, 11/15/2021 Meningococcal B Vaccine Aged Out No l onger eligible based on patient's age to complete this topic Meningococcal Vaccine Aged Out No marie raymond eligible based on patient's age to complete this topic RSV Immunizations Under 20 Months Aged Out No longer eligible based on patient's age to complete this topic Medical Devices Implanted Type Area Clip Wrapper Device Identifier Shelf Expiration Date Model / Serial / Lot 120 Mm Curved Yara Implanted:Qty: 1 on 01/13/2024 by Joon Jenkins MD at [facility] Yara N/A: Spine Cervical NEW AGE MEDICAL . 26-CC-PB- YARA-120 / / . 120 Mm Straight Yara Implanted:Qty: 1 on 01/13/2024 by Joon Jenkins MD at [facility] Yara N/A: Spine Cervical NEW AGE MEDICAL . 23-CC-YARA -120 / / . 3.5x24 Oct Screw Implanted:Qty: 2 on 01/13/2024 by Joon Jenkins MD at [facility] Screw N/A: Spine Cervical NEW AGE MEDICAL PA-35- 24 / / 3.5 X 26 Mm Oct Screw Implanted:Qty: 2 on 01/13/2024 by Joon Jenkins MD at [facility] Screw N/A: Spine Cervical NEW AGE MEDICAL . PA-35- 26 / / . 3.5 X 28 Mm Oct Screw Implanted:Qty: 2 on 01/13/2024 by Joon Jenkins MD at [facility] Screw N/A: Spine Cervical NEW AGE MEDICAL . PA-35- 28 / / . 3.5 X 12 Mm Oct Screw Implanted:Qty: 7 on 01/13/2024 by Joon Jenkins MD at [facility] Screw N/A: Spine Cervical NEW AGE MEDICAL . PA-35- 12 / / . Set Screws Implanted:Qty: 13 on 01/13/2024 by Joon Jenkins MD at [facility] N/A: Spine Cervical NEW AGE MEDICAL . 26-SETSCR EW / / . [employer] 5 Cc Implanted:Qty: 1 on 01/13/2024 by Joon Jenkins MD at [facility] N/A: Spine Cervical [id number] 10/11/2027 [id number] S / / [id number] Description:SYNTHETIC BONE [employer] Insurance [facility] Advance Directives * Full Code (Latest Code Status on File) Date Activated Date Inactivated Comments 01/13/2024 7:53 PM 01/21/2024 1:06 PM Care Teams Assistant Boiler Operator Relationship Specialty Start Date End Date Cristian Bhardwaj MD [address] [facility] [address] [place] [address] PCP - General INTERNAL MEDICINE 01/10/24
[2024-12-13 18:08] VITALS: BP 147/84; PULSE 75; RESP 22; TEMP 36.1; O2SAT 100
[2024-12-13 18:21] LABS: Basophils Absolute Auto 0.1 K/mm3 (0.0-0.1); Basophils Percent Auto 0.4 % (0.2-1.2); Eosinophils Percent Auto 0.2 % (0-4.4); Hematocrit 38.8 % (42.0-52.0); Hemoglobin 12.1 g/dL (14.0-18.0); Immature Granulocyte Absolute 0.04 K/mm3 (0.00-0.031); Immature Granulocyte Percent A 0.3 % (0-0.5); Lymphocytes Absolute Auto 1.14 K/mm3 (0.9-3.2); Mean Corpuscular HGB Conc 31.2 g/dl (32-36); Mean Corpuscular Volume 99.5 fl (80-100); Monocytes Absolute Auto 0.5 K/mm3 (0.1-0.6); Monocytes Percent Auto 4.7 % (2.6-8.5); Neutrophils Absolute Auto 9.6 K/mm3 (1.3-6.7); Neutrophils Percent Auto 84.4 % (45.5-73.1); Platelet Count Result 431 k/mm3 (150-375); Red Cell Distribution Width 14.5 % (11.5-14.5); White Blood Count 11.4 K/mm3 (4.5-10.0)
[2024-12-13 18:31] LABS: Alanine Aminotransferase 22 U/L (6-50); Albumin Level 4.3 g/dL (3.5-5.1); Alkaline Phosphatase 62 U/L (38-126); Anion Gap 11 mmol/L (4-12); Aspartate Amino Transferase 27 U/L (17-59); Bilirubin,Total 0.8 mg/dL (0.2-1.3); Blood Urea Nitrogen 14 mg/dL (9-20); Calcium 10.5 mg/dL (8.4-10.2); Carbon Dioxide 28 mmol/L (22-30); Chloride 99 mmol/L (98-107); Estimated Glomerular Filt Rate > 60; Glucose 118 mg/dL (65-110); Lipase 72 U/L (23-300); Sodium 138 mmol/L (137-145)
--- NOTE | 2024-12-13 19:00 | ED.GENADULT ---
HPI - General Adult General Chief complaint: Abdominal Pain Stated complaint: STOMACH PAIN Time Seen by Provider: 12/13/24 18:51 History of Present Illness HPI narrative: 69-year-old male present to the emergency department for evaluation for 1 month of abdominal pain and epigastric pain. Patient states that approximately 10 30 this morning the epigastric pain worsened. Patient states the epigastric pain radiates into his back. Patient does have history of gastritis. Patient does report a intentional weight some worsened the last week. Related Data Allergies Allergy/AdvReac Type Severity Reaction Status Date / Time codeine Allergy Abdominal Verified 12/13/24 18:07 Pain Review of Systems Review of Systems: All systems reviewed & are unremarkable except as noted in HPI and below Exam Narrative: APPEARANCE: Uncomfortable HEAD: normocephalic, atraumatic. EYES: PERRLA/EOMI, conjunctivae clear. NOSE: Normal no drainage EARS:TMS clear with good light reflex. THROAT: Pharynx clear, no exudate. NECK: Supple. No adenopathy, no masses. RESPIRATORY: Airway patent, respirations nonlabored. Clear to auscultation bilaterally, no rales, rhonchi, wheezing. CARDIOVASCULAR: Regular rate and rhythm without murmurs rubs or gallops. ABDOMINAL: Epigastric tenderness to palpation MUSCULOSKELETAL: Moves all extremities. Strength/ROM intact, No edema, No calf tenderness. NEURO: Alert. Cranial nerves II through XII intact. Good gait. Good coordination SKIN: Warm, dry. Normal Color Course Vital Signs Vital signs: Vital Signs Temperature 97.0 F L 12/13/24 18:08 Pulse Rate 75 12/13/24 18:08 Respiratory Rate 22 H 12/13/24 18:08 Blood Pressure 147/84 H 12/13/24 18:08 Pulse Oximetry 100 12/13/24 18:08 Oxygen Delivery Room Air 12/13/24 18:08 Temperature 97.0 F L 12/13/24 18:08 Pulse Rate 75 12/13/24 18:08 Respiratory Rate 22 H 12/13/24 18:08 Blood Pressure 147/84 H 12/13/24 18:08 Pulse Oximetry 100 12/13/24 18:08 Oxygen Delivery Room Air 12/13/24 18:08 Medical Decision Making [facility] Narrative Medical decision making narrative: 69-year-old male present to the emergency department for evaluation for epigastric pain. Patient is currently afebrile but does have a leukocytosis of 11.4 hemoglobin of 12.1. No acute abnormalities on his CMP but does have a mildly elevated glucose of 118. No elevation T bili AST ALT alk-phos or lipase. UA was negative for infection. CT scan showed no significant acute abnormalities but does have multiple findings he will need outpatient follow-up for. On re-evaluation patient states that his pain was resolved after the GI cocktail. Patient was also treated with IV from [facility]admin[place] and IV Protonix. Patient family are updated on the results of the workup they are comfortable with plan for discharge and close follow-up. Differential Diagnosis Differential Diagnosis: Aortic dissection, aortic aneurysm, colitis, diverticulitis, pancreatitis, gastritis, esophagitis Vital Signs Vital Signs: Vital Signs Temperature 97.0 F L 12/13/24 18:08 Pulse Rate 75 12/13/24 18:08 Respiratory Rate 22 H 12/13/24 18:08 Blood Pressure 147/84 H 12/13/24 18:08 Pulse Oximetry 100 12/13/24 18:08 Oxygen Delivery Room Air 12/13/24 18:08 Temperature 97.0 F L 12/13/24 18:08 Pulse Rate 75 12/13/24 18:08 Respiratory Rate 22 H 12/13/24 18:08 Blood Pressure 147/84 H 12/13/24 18:08 Pulse Oximetry 100 12/13/24 18:08 Oxygen Delivery Room Air 12/13/24 18:08 Lab Data Lab results reviewed: Yes I reviewed the patient's lab results. 12/13/24 18:15 12/13/24 18:15 Labs: Lab Results 12/13/24 12/13/24 Range/Units 18:05 18:15 WBC 11.4 H (4.5-10.0) K/mm3 RBC 3.90 L (4.6-6.20) M/mm3 Hgb 12.1 L (14.0-18.0) g/dL Hct 38.8 L (42.0-52.0) % MCV 99.5 (80-100) fl MCH 31.0 (26-34) pg MCHC 31.2 L (32-36) g/dl RDW 14.5 (11.5-14.5) % Plt Count 431 H (150-375) k/mm3 MPV 9.0 (7.4-10.4) fl Immature Gran % (Auto) 0.3 (0-0.5) % Neut % (Auto) 84.4 H (45.5-73.1) % Lymph % (Auto) 10.0 L (18.3-44.2) % [place] % (Auto) 4.7 (2.6-8.5) % Eos % (Auto) 0.2 (0-4.4) % Baso % (Auto) 0.4 (0.2-1.2) % Lymph # (Auto) 1.14 (0.9-3.2) K/mm3 [place] # (Auto) 0.5 (0.1-0.6) K/mm3 Eos # (Auto) 0.0 (0-0.3) K/mm3 Baso # (Auto) 0.1 (0.0-0.1) K/mm3 Abs Immat Gran (auto) 0.04 H (0.00-0.031) K/mm3 Absolute Neuts (auto) 9.6 H (1.3-6.7) K/mm3 Absolute Nucleated RBC 0.000 (0.0-0.012) K/mm3 Nucleated RBC % 0.0 (0.0-0.2) % Sodium 138 (137-145) mmol/L Potassium 4.0 (3.4-5.0) mmol/L Chloride 99 (98-107) mmol/L Carbon Dioxide 28 (22-30) mmol/L Anion Gap 11 (4-12) mmol/L BUN 14 (9-20) mg/dL Creatinine 0.98 (0.7-1.3) mg/dL Estim Creat Clear Calc Not Reportable Estimated GFR > 60 (59 - ) Glucose 118 H (65-110) mg/dL Calcium 10.5 H (8.4-10.2) mg/dL Total Bilirubin 0.8 (0.2-1.3) mg/dL AST 27 (17-59) U/L ALT 22 (6-50) U/L Alkaline Phosphatase 62 (38-126) U/L Total Protein 8.0 (6.3-8.2) g/dL Albumin 4.3 (3.5-5.1) g/dL Lipase 72 (23-300) U/L Urine Color Yellow (Yellow) Urine Appearance Clear (Clear) Urine pH 8.0 (5.0-9.0) Ur Specific [place] 1.045 H (1.001-1.035) Urine Protein 1+ H (Negative) mg/dL Urine Glucose (UA) Negative (Negative) mg/dL Urine Ketones Negative (Negative) mg/dL Ur Blood (Man) Trace (Negative) Urine Nitrate Negative (Negative) Urine Bilirubin Negative (Negative) Urine Urobilinogen 0.2 (<2.0) mg/dL Leukocyte Esterase Rfl Negative (Negative) JOSEPHINE/UL Urine RBC 3-5 H (0-2) /hpf Urine WBC 0-5 (0-3) /hpf Ur Squamous Epith Cells None seen (Few) /hpf Urine Bacteria None seen /hpf Urine Casts 0-2 Imaging Data Radiologist's impression: Impressions Chest/Abdomen/Pelvis CTA 12/13/24 19:43 IMPRESSION: Mild emphysema. 1.5 cm right thyroid nodule, recommend nonemergent, outpatient thyroid ultrasound for further evaluation. 5 mm hyperenhancing focus in the inferior right liver lobe, recommend nonemergent but timely MRI of the liver without and with contrast for further characterization. Mild mesenteric edema, a nonspecific finding. 3.1 cm fusiform abdominal aortic aneurysm. Cystitis. Left inguinal hernia containing unobstructed large bowel. Mild body wall edema. Discharge Plan Discharge Clinical Impression: Acute epigastric pain Patient Disposition: Home Condition: Stable Instructions: Antibiotic Form, Gastritis (DC), Diet for Stomach Ulcers and Gastritis (ED) Additional Instructions: Continue to avoid NSAIDs and avoid alcohol. Follow a bland diet. Take the omeprazole as directed for the next 14 days. Maalox as needed for intermittent epigastric pain. Have close follow-up with your primary care physician. You will also need follow-up with GI. If you have any worsening symptoms then please call or return to the emergency department. Have close follow-up with your primary care physician regarding findings on your CT scan requiring follow-up imaging. Patient Language: Bengali Prescriptions: New omeprazole 20 mg capsule,delayed release(DR/EC) 20 mg PO DAILY 14 Days Qty: 14 0RF Follow-up/Referrals: Benton,Cristian Oliver MD [Primary Care Provider] - Lenin Greco MD [Physician] -
--- OUTSIDE RECORDS SUMMARY | 2024-12-13 19:03 | XMS_ITS | Clinical Summary ---
Author Organization [facility] Address [address] [place] [address] Care Team Providers Care Draw Operator Name Role Phone Cristian Bhardwaj MD Primary Care Provider [phone] Source Comments [facility],non-owned Affiliates and Associated Physician Practices is amultiple site organization consisting of ambulatory clinics and hospital sitesin [place], [place], [place] and [place]. This disclosure is being madepursuant to the Care Everywhere program and may not contain all information available regarding this patient. Last updated 18.[facility] Allergies Active Allergy Reactions Criticality Noted Date [...] on file Legal Sex Male 9:24 AM CONTEMPORARY OR MODERN DANCER Gender Identity Not on file Sexual Orientation Not on file Last Filed Vital Signs Vital Sign Reading Time Taken Comments Blood Pressure 130/70 11/24/2012 11:31 AM CDT Pulse 64 11/24/2012 11:31 AM CDT Temperature 36.7 C (98 F) 08/31/2011 8:00 AM CONTEMPORARY OR MODERN DANCER Respiratory Rate 26 11/24/2012 11:31 AM CDT Oxygen Saturation 93% 08/31/2011 8:00 AM CONTEMPORARY OR MODERN DANCER Inhaled Oxygen Concentration - - Weight 79.4 [...] patient's age to complete this topic Insurance [facility] [employer] Advance Directives * FULL RESUSCITATION (Latest Code Status on File) Date Activated Date Inactivated Comments 08/30/2011 3:25 PM 08/31/2011 8:09 PM * Full Code Date Activated Date Inactivated Comments 06/13/2010 5:31 PM 06/14/2010 10:37 PM Care Teams Draw Operator Relationship Specialty Start Date End Date Cristian Bhardwaj MD [address] [place] [phone] PCP - General Internal Medicine 05/22/10
--- OUTSIDE RECORDS SUMMARY | 2024-12-13 19:03 | XMS_ITS | CONTINUITY OF CARE DOCUMENT ---
Author Name sylindranevin Address Unknown Organization [facility] Address [address] [place] [address] [address] [place] [address] Phone [phone] Care Team Providers Care Manager Recruiting Name Role Phone Bubba QUIROS, Carol Unavailable [phone] YANELIS LUTZ MD Unavailable INSURANCE PROVIDERS Payer name Policy type / Coverage type Michelle red green party ID [facility] [id number]
--- OUTSIDE RECORDS SUMMARY | 2024-12-13 19:03 | XMS_ITS | Clinical Summary ---
Author Organization [facility] Address [facility] [place] [address] Care Team Providers Care Retail Event And Sales Assistant Name Role Phone Cristian Bhardwaj MD Primary Care Provider [phone] Allergies No known active allergies Medications pravastatin [...] Problems Problem Noted Date Diagnosed Date Myelopathy ([facility]) 01/13/2024 Social History Tobacco Use Types Packs/Day Years Used Date Smoking Tobacco: Every Day Cigarettes Smokeless Tobacco: Never Alcohol Use Standard Drinks/Week Comments Never 0 (1 standard drink = 0.6 oz pur e alcohol) [facility] Utilities Answer Date Recorded In the past [...] any time in the past 12 m [facility], were you homeless or living in a halfway (including now)? No 01/13/2024 Sex and Gender [...] this topic Medical Devices Implanted Type Area Roll Forming Machine Set Up Operator Device Identifier Shelf Expiration Date Model / Serial / Lot 120 Mm Curved Yara Implanted:Qty: 1 on 01/13/2024 by Joon Jenkins MD at [facility] Yara N/A: Spine Cervical NEW AGE MEDICAL . 26-CC-PB- YARA-120 / / . 120 Mm Straight Yara Implanted:Qty: 1 on 01/13/2024 by Joon Jenkins MD at [facility] Yara N/A: Spine Cervical NEW AGE MEDICAL . 23-CC-YARA -120 / / . 3.5x24 Oct Screw Implanted:Qty: 2 on 01/13/2024 by Joon Jenkins MD at [facility] Screw N/A: Spine Cervical NEW AGE MEDICAL PA-35- 24 / / 3.5 X 26 Mm Oct Screw Implanted:Qty: 2 on 01/13/2024 by Joon Jenkins MD at [facility] Screw N/A: Spine Cervical NEW AGE [employer] . PA-35- 26 / / . 3.5 X 28 Mm Oct Screw Implanted:Qty: 2 on 01/13/2024 by Joon Jenkins MD at [facility] Screw N/A: Spine Cervical NEW AGE MEDICAL . PA-35- 28 / / . 3.5 X 12 Mm Oct Screw Implanted:Qty: 7 on 01/13/2024 by Joon Jenkins MD at [facility] Screw N/A: Spine Cervical NEW AGE MEDICAL . PA-35- 12 / / . Set Screws Implanted:Qty: 13 on 01/13/2024 by Joon Jenkins MD at [facility] N/A: Spine Cervical NEW AGE MEDICAL . 26-SETSCR EW / / . [employer]etos 5 Cc Implanted:Qty: 1 on 01/13/2024 by Joon Jenkins MD at [facility] N/A: Spine Cervical [id number] 10/11/2027 [id number] S / / [id number] Description:[employer] Insurance [facility] Advance Directives * Full Code (Latest Code Status on File) Date Activated Date Inactivated Comments 01/13/2024 7:53 PM 01/21/2024 1:06 PM Care Teams Retail Event And Sales Assistant Relationship Specialty Start Date End Date Cristian Bhardwaj MD [address] [facility] [address] [place] [id number] PCP - General INTERNAL MEDICINE 01/10/24
[2024-12-13] MEDS: FAMOTIDINE 20 MG/2 ML VIAL IV PUSH (19:33)
[2024-12-13] MEDS: LACTATED RINGERS 1,000 ML 999 ML IV CONT (19:33)
[2024-12-13] MEDS: PANTOPRAZOLE SODIUM IV 40 MG VIAL IV PUSH (19:33)
[2024-12-13] MEDS: BELLADONNA ALK/PHENOB ELIX 10 ML, MAG HYDROX/ALUMINUM HYD/SIMETH 30 ML, LIDOCAINE 2% VI... PO (19:33)
[2024-12-13 20:11] LABS: Add Urine Microscopic? YES; Appearance Urine Clear (Clear); Bacteria Urine None Seen /hpf; Bilirubin Urine Negative (Negative); Blood Urine Trace (Negative); Color Urine Yellow (Yellow); Glucose Urine UA Negative (Negative); Ketones Urine Negative (Negative); Leukocyte Esterase Ur Negative LEU/UL (Negative); Nitrate Urine Negative (Negative); Non Pathogenic Casts 0-2; Protein Urine 1+ mg/dL (Negative); Specific Grav Ur 1.045 (1.001-1.035); Squamous Epithelial Cell Urine None Seen /hpf (Few); Urobilinogen Urine 0.2 mg/dL (<2.0); WBC Urine 0-5 /hpf (0-3)
--- NOTE | 2024-12-13 21:48 | ECG_ITS ---
Test Date: 2024-12-13 21:53:43 Measurements Intervals [place] Rate: 63 P: 0 [place]: 0 QRS: 55 QRSD: 76 T: 51 QT: 405 QTc: 417 Interpretive Statements sinus rhythm with PVCs NONSPECIFIC T-WAVE ABNORMALITY ABNORMAL RHYTHM ECG No previous ECG available for comparison Electronically Signed On 12-14-2024 06:48:01 CDT by Jose Hernandez M.D.
== END 2024-12-13 22:20 | disposition home or self-care (01) ==
PROVIDERS: Emergency Medicine; Emergency Provider Emergency Medicine; PCP Internal Medicine
DX: R10.13 Epigastric pain (principal)
CPT/HCPCS: 36415; 71275; 74174; 80053; 81001; 83690; 85025; 93005; 96361; 96374; 96375; 99284; A9270; J2470; J7120; Q9967